=== PATIENT | male | born 1935 | race Caucasian/White ===

== ENCOUNTER 2017-12-13 17:51 | Observation (INO) | payer OTHER ==
[~2017-12-13] VITALS: Ht 172.7 cm; Wt 64.4 kg
[~2017-12-13 17:51] MED LIST: FLOMAX0.4 MG PO; FLONASE 0.05%50 MCG NASAL; HYDROCODONE-APA1 TA1 PO; LEVAQUIN 500 M500 M2 PO; LUMIGAN2.5 M1 OP; MACULAR VITAMI1 EACH PO; REFRESH CLASSI1 EACH OP; RESTORIL15 MG PO
[2017-12-13 17:56] VITALS: BP 161/57
[2017-12-13] MEDS ORDERED: METFORMIN HCL500 MG PO (18:15)
[2017-12-13] MEDS ORDERED: XANAX1 MG PO (18:16)
[2017-12-13 18:25] LABS: ABSOLUTE EOSINOPHILS 0.1 thou/uL (0.0-0.7); ABSOLUTE LYMPHOCYTES 1.5 thou/uL (0.8-5.3); ABSOLUTE MONOCYTES 0.6 thou/uL (0.0-1.2); ABSOLUTE NEUTROPHILS 3.5 thou/uL (1.6-8.1); BASOPHILS 0.2 %; HEMATOCRIT 40.3 % (42.0-52.0); HEMOGLOBIN 13.6 gm/dL (14.0-18.0); LYMPHOCYTES 26.8 %; MCH 34.4 pg (26.0-34.0); MCHC 33.7 g/dL (28.0-37.0); MCV 102.2 fL (80.0-100.0); MONOCYTES 10.1 %; NUCLEATED RBCS 0 /100WBC; PLATELET COUNT* 169 thou/uL (150-400); POLYS 61.9 %; RBC 3.94 mil/uL (4.50-6.00); RDW-CV 13.6 % (10.5-14.5); WBC 5.7 thou/uL (4.0-11.0)
[2017-12-13 18:33] LABS: ANION GAP 5 mmol/L (7-16); BUN 9 mg/dL (7-18); CALCIUM 8.3 mg/dL (8.5-10.1); CHLORIDE 100 mmol/L (98-107); CO2 30 mmol/L (21-32); CREATININE 0.8 mg/dL (0.6-1.3); GLUCOSE 135 mg/dL (70-99); POTASSIUM 3.7 mmol/L (3.5-5.1); SODIUM 135 mmol/L (136-145)
[2017-12-13 18:37] LABS: PROTIME 10.7 Seconds (9.20-11.50)
[2017-12-13 18:44] LABS: ALBUMIN 3.3 g/dL (3.4-5.0); ALKALINE PHOSPHATASE 53 U/L (46-116); NT-PRO BRAIN NAT PEPTIDE 451 pg/mL (<300); SGOT 18 U/L (15-37); SGPT 23 U/L (30-65); TOTAL PROTEIN 6.5 g/dL (6.4-8.2); TROPONIN-I LEVEL <0.06 ng/mL (<0.06)
[2017-12-13 19:40] VITALS: BP 143/62
[2017-12-13 20:00] VITALS: BP 147/65
[2017-12-14] VITALS: BP 112/53
[2017-12-14 04:00] VITALS: BP 111/51
[2017-12-14 05:24] LABS: CHOLESTEROL 154 mg/dL (<200); HDL CHOLESTEROL 73 mg/dL (>40); LDL CHOLESTEROL 78 mg/dL (<100); TC:HDL 2.1 Ratio (Not establshd); TRIGLYCERIDE 19 mg/dL (<150); VLDL 4 mg/dL (<40)
[2017-12-14 05:54] LABS: SERUM ASSESSMENT CLEAR
[2017-12-14 08:00] VITALS: BP 123/57
[2017-12-14] MEDS ORDERED: LO-DOSE ASPIRIN81 M1 PO (09:05)
[2017-12-14] MEDS ORDERED: CEFDINIR300 MG PO (09:05)
[2017-12-14] MEDS ORDERED: MEDROLDOSEPACK PO (09:05)
[2017-12-14] MEDS ORDERED: ANTIVERT25 MG PO (09:05)
--- NOTE | 2017-12-14 11:02 | EKG ---
[place] [address] ELECTROCARDIOGRAM REPORT Name: LILY CORNEJO Room: [address] M.R.#: [id number] Admission: 12/13/17 Attend Phys: Mani Huang MD Discharge: Date of : 31 Report #: [id number] THIS REPORT FOR: //name// [facility] ED Test Date: 2017-12-13 Test Time: 18:02:05 Pat Name: LILY CORNEJO Department: Room: [facility] Gender: M Marketing Content Specialist: Sania BLACKBURN : 1935 Requested By: Moses Clements Order Number: [id number] MD: Camron Gonzalez Measurements Intervals [place] Rate: 65 P: 40 LA: 162 QRS: -2 QRSD: 102 T: 42 QT: 409 QTc: 426 Interpretive Statements Sinus rhythm Compared to ECG 11/20/2015 13:12:30 no change Electronically Signed On 12-14-2017 11:02:25 CDT by Camron Gonzalez [email or web address] <ELECTRONICALLY SIGNED> By: Camron Gonzalez MD, [facility] 12/14/17 1102 01 01 Camron Gonzalez MD, [facility] /EPI
[2017-12-14 11:04] VITALS: BP 123/57
--- NOTE | 2017-12-14 11:04 | EKG ---
[place] [address] ELECTROCARDIOGRAM REPORT Name: LILY CORNEJO Room: [address] M.R.#: [id number] Admission: 12/13/17 Attend Phys: Mani Huang MD Discharge: Date of : 31 Report #: [id number] THIS REPORT FOR: //name// [facility] Test Date: 2017-12-13 Test Time: 23:49:24 Pat Name: LILY CORNEJO Department: Room: [address] Gender: M Hvac Services Professional: DIANNE : 1935 Requested By: Mani Huang Order Number: [id number] Jonathan MD: Camron Gonzalez Measurements Intervals [place] Rate: 66 P: 74 MD: 164 QRS: -42 QRSD: 89 T: 29 QT: 556 QTc: 583 Interpretive Statements Sinus rhythm Left axis deviation Borderline abnrm T, anterolateral leads Prolonged QT interval Electronically Signed On 12-14-2017 11:04:21 CDT by Camron Gonzalez [email or web address] <ELECTRONICALLY SIGNED> By: Camron Gonzalez MD, [facility] 12/14/17 1104 D: [id number] Camron Gonzalez MD, [facility] /EPI
[2017-12-14 11:16] LABS: URINE BILIRUBIN NEGATIVE (Negative); URINE BLOOD NEGATIVE (Negative); URINE CLARITY CLEAR; URINE COLOR YELLOW; URINE GLUCOSE-RANDOM NEGATIVE (Negative); URINE KETONES TRACE (Negative); URINE LEUKOCYTES-REFLEX NEGATIVE (Negative); URINE NITRITE-REFLEX NEGATIVE (Negative); URINE PROTEIN NEGATIVE (Negative); URINE SPECIFIC GRAVITY 1.015 (1.005-1.030); URINE UROBILINOGEN 0.2 E.U./dl (0.2-1.0)
== END 2017-12-14 12:00 | disposition home or self-care (01) ==
LOC: M.ERS 17:51 → M.TBA-ER 18:42 → M.2W 18:42
PROVIDERS: Family Medicine; ADMIT Internal Medicine
DX: H81.23 Vestibular neuronitis, bilateral (principal); H61.23 Impacted cerumen, bilateral; J32.9 Chronic sinusitis, unspecified; R42 Dizziness and giddiness; G25.0 Essential tremor; H35.30 Unspecified macular degeneration; E46 Unspecified protein-calorie malnutrition; G20 Parkinson's disease; I87.8 Other specified disorders of veins; F17.210 Nicotine dependence, cigarettes, uncomplicated; R60.0 Localized edema; Z90.49 Acquired absence of other specified parts of digestive tract; Z98.890 Other specified postprocedural states

== ENCOUNTER 2017-12-22 14:49 | Inpatient (IN) | payer OTHER ==
[~2017-12-22] VITALS: Ht 152.4 cm; Wt 54.9 kg
[~2017-12-22 14:49] MED LIST changes: +ANTIVERT25 MG PO; +CEFDINIR300 MG PO; +LO-DOSE ASPIRIN81 M1 PO; +MEDROLDOSEPACK PO; +METFORMIN HCL500 MG PO; +XANAX1 MG PO
[2017-12-22 14:55] VITALS: BP 138/75
[2017-12-22] MEDS ORDERED: FLONASE 0.05%50 MCG NASAL (15:00)
[2017-12-22 15:14] LABS: HEMATOCRIT 42.8 % (42.0-52.0); HEMOGLOBIN 14.4 gm/dL (14.0-18.0); MCH 34.1 pg (26.0-34.0); MCHC 33.6 g/dL (28.0-37.0); MCV 101.3 fL (80.0-100.0); MPV 9.4 fl. (7.2-11.1); NUCLEATED RBCS 0 /100WBC; PLATELET COUNT* 186 thou/uL (150-400); RBC 4.23 mil/uL (4.50-6.00); RDW-CV 13.7 % (10.5-14.5)
[2017-12-22 15:21] LABS: ANION GAP 4 mmol/L (7-16); BUN 15 mg/dL (7-18); CALCIUM 8.4 mg/dL (8.5-10.1); CHLORIDE 97 mmol/L (98-107); CO2 31 mmol/L (21-32); CREATININE 0.9 mg/dL (0.6-1.3); GLUCOSE 96 mg/dL (70-99); POTASSIUM 3.8 mmol/L (3.5-5.1); SODIUM 132 mmol/L (136-145)
[2017-12-22 15:24] LABS: PROTIME 10.7 Seconds (9.20-11.50)
[2017-12-22 15:32] LABS: ALBUMIN 3.5 g/dL (3.4-5.0); ALKALINE PHOSPHATASE 54 U/L (46-116); LIPASE 94 U/L (73-393); NT-PRO BRAIN NAT PEPTIDE 150 pg/mL (<300); SGOT 17 U/L (15-37); SGPT 24 U/L (30-65); TOTAL BILIRUBIN 2.1 mg/dL (<0.1-1.0); TOTAL PROTEIN 6.4 g/dL (6.4-8.2); TROPONIN-I LEVEL <0.06 ng/mL (<0.06)
[2017-12-22 15:40] LABS: ABSOLUTE LYMPHOCYTES 0.6 thou/uL (0.8-5.3); ABSOLUTE MONOCYTES 2.6 thou/uL (0.0-1.2); ABSOLUTE NEUTROPHILS 25.8 thou/uL (1.6-8.1)
[2017-12-22 15:41] LABS: MACROCYTES Occasional; PLATELET ESTIMATE ADEQUATE
[2017-12-22 19:15] VITALS: BP 100/41
[2017-12-22 19:40] VITALS: BP 126/66
[2017-12-23] VITALS: BP 84/56
[2017-12-23 04:00] VITALS: BP 93/39
--- NOTE | 2017-12-23 05:37 | NUR ---
PT ADMITTED TO ROOM 230FROM ER. PT MOVED SELF TO HOSPITAL BED WITHOUT DIFFICUTLY. RESP REG AND UNALBORED SKIN W/D NO ACUTE DISTRSS NOTED. PT ORIENTED TO ROOM, CALL SUSTEM BED CONTROLS AND TV CONTROLS. PT VERBALIZED GOOD UNDERSTANDING. PT HAS SMALL OPEN AREA ON SACRUM AND STATED HE HAD IT DURING LAST HOSPITAL STATY TOO ABUT IT WAS MUCH BETTER. PICTURES TAKEN,. VSS AND NO ACUTE CHAGNES DURING SHIFT WILL CONTINUE TO MONITOR. TELEMETRY PACK APPLIED WITH ALARMS SET. PT HAD AN INCONTINENT LOOSE STOOL X2 THIS SHIFT.
[2017-12-23 08:41] VITALS: BP 105/50
--- NOTE | 2017-12-23 11:33 | NUR ---
ASSUMED PT CARE AT 0730, FULL ASSESMENT DONE CHARTED. PT A/O X4, C/O SOME BACK PAIN, DENIES NEED FOR ANY PAIN MEDS. PT STATES HE HAS HAD SOME LOOSE STOOLS TODAY AND THIS WEEK AFTER STARTING SOME ABX FOR A SINUS INFECTION. PT UP WITH ASSIST, USES CALL LIGHT APPROPRIALTY. VSS, SR/BBB/PVC'S ON THE MONITOR
--- NOTE | 2017-12-23 12:28 | NUR ---
MET WITH PT TO DISCUSS HOME SITUATION/DC PLANNING. PT WAS HOSPITALIZED AND DC'D LAST WEEK. PT LIVES ALONE, SON/BILL AND HELEN/ERICKA WHO IS DPOA CHECK ON HIM REGULARLY. PT USES CANE, IS INDEPENDENT WITH ADLS AND DRIVES. HASN'T HAD HH OR BEEN TO SNF. HE STATED HE WAS CONSIDERING HH THIS TIME. PT WAS ADMITTED FROM 'S OFFICE YESTERDAY. CALL TO BART, SHE WAS NOT AWARE PT WAS HOSPITALIZED, WILL BE HERE LATER TODAY. SHE STATED THEY SAW PT ON THURSDAY AND HE WAS DOING WELL. WILL FOLLOW
[2017-12-23 14:42] LABS: HEMATOCRIT 37.5 % (42.0-52.0); MCH 33.8 pg (26.0-34.0); MCHC 32.9 g/dL (28.0-37.0); MCV 102.8 fL (80.0-100.0); MPV 9.9 fl. (7.2-11.1); RBC 3.65 mil/uL (4.50-6.00); RDW-CV 13.9 % (10.5-14.5); WBC 31.9 thou/uL (4.0-11.0)
[2017-12-23 14:44] LABS: HEMOGLOBIN 12.3 gm/dL (14.0-18.0)
[2017-12-23 14:55] LABS: CALCIUM 7.7 mg/dL (8.5-10.1); POTASSIUM 3.2 mmol/L (3.5-5.1)
[2017-12-23 15:16] VITALS: BP 101/33
--- NOTE | 2017-12-23 15:47 | NUR ---
WOUND CARE NOTE: ASSESSMENT FOR PRESSURE ULCER TO COCCYX. PATIENT PRESENTS WITH A HEALING ULCERATION TO HIS COCCYX. 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 ERIK-WOUND IS CALLUSED. PATIENT ADMITS TO HAVING THIS FOR A COUPLE OF WEEKS NOW AND IT WAS THE SIZE OF HIS THUMB. WOUND MEASURES 0.5X0.2X0.1. RED, MOIST WOUND BED. RECOMMEND TURN Q2 HOURS-KEEP OFF WOUND BARRIER OINTMENT BID AND PRN WAFFLE CUSHION WHEN IN CHAIR NO BRIEFS LIMIT LAYERS OF LINEN UNDER PATIENT
--- NOTE | 2017-12-23 17:17 | EKG ---
[place] [address] ELECTROCARDIOGRAM REPORT Name: LILY CORNEJO Room: [address] ADM IN M.R.#: [id number] Admission: 12/22/17 Attend Phys: Vincent Monique Discharge: Date of : 31 Report #: [id number] THIS REPORT FOR: //name// [facility] ED Test Date: 2017-12-22 Test Time: 14:57:03 Pat Name: LILY CORNEJO Department: Room: [facility] Gender: M Fisher Spear: JAVI : 1935 Requested By: Alberto Alamo Order Number: [id number] MD: Adalberto Barrera Measurements Intervals [place] Rate: 94 P: 61 MO: 145 QRS: -58 QRSD: 97 T: 39 QT: 351 QTc: 439 Interpretive Statements Sinus rhythm LAD, consider left anterior fascicular block Borderline T wave abnormalities Baseline wander in lead(s) V1 Compared to ECG 12/13/2017 23:49:24 T-wave abnormality now present Prolonged QT interval no longer present Electronically Signed On 12-23-2017 17:16:56 CDT by Adalberto Barrera [email or web address] <ELECTRONICALLY SIGNED> By: Adalberto Barrera MD, [facility] 12/23/17 1716 1457 1457 Adalberto Barrera MD, [facility] /EPI
[2017-12-23 20:00] VITALS: BP 91/40
[2017-12-24] VITALS: BP 105/54
[2017-12-24 04:00] VITALS: BP 107/44
[2017-12-24 05:12] LABS: ALBUMIN 2.3 g/dL (3.4-5.0); CALCIUM 7.3 mg/dL (8.5-10.1); CREATININE 0.9 mg/dL (0.6-1.3); POTASSIUM 3.5 mmol/L (3.5-5.1); TOTAL PROTEIN 4.7 g/dL (6.4-8.2)
--- NOTE | 2017-12-24 05:26 | NUR ---
VITALS WNL. SEE MAR. SEE CHARTING. FALL PRECAUTIONS IN PLACE. HOURLY ROUNDING FOR SAFETY.
[2017-12-24 07:30] VITALS: BP 91/39
[2017-12-24 12:00] VITALS: BP 126/70
--- NOTE | 2017-12-24 12:26 | CON ---
[address] [address] CONSULTATION Name: LILY CORNEJO Room: [address] IN .R.#: [id number] Admission: 12/22/17 Attend Phys: Vincent Monique Discharge: Date of : 31 Report #: [id number] THIS REPORT FOR: //name// CC: Camron Jaffe DATE OF SERVICE: 12/23/2017 INFECTIOUS DISEASE CONSULTATION ATTENDING PHYSICIAN: Rai Jaffe DO REASON FOR EVALUATION: Sepsis, diarrheal illness, marked leukocytosis. HISTORY OF PRESENT ILLNESS: Chart reviewed, patient examined. This 82-year-old gentleman with history of prostate cancer was actually hospitalized earlier this month, was felt to have severe sinusitis, was treated with antibiotics. Over the course of the last day or 2 prior to admission, he had developed abdominal related discomfort including pain and shortly thereafter diarrhea. It is unclear if he has had significant fevers. He had progressive weakness. Evaluation noted marked elevation in the white count to 29,000. Lactic acid was 1.1. Chest x-ray was otherwise unremarkable. Was empirically started on Zosyn. ALLERGIES: None known. MEDICATIONS: Multivitamin, fluticasone, alprazolam, metformin, furosemide, aspirin, tamsulosin, methylprednisolone, Zosyn, temazepam. PAST MEDICAL HISTORY: As noted above, prostate cancer, essential tremor, history of macular degeneration, previous cholecystectomy. SOCIAL HISTORY: Smokes half pack per day for 70 years. No illicit drug use. No ethanol. FAMILY HISTORY: Noncontributory. REVIEW OF SYSTEMS: As above. Denies any significant pulmonary-related complaints. Appetite has been diminished. PHYSICAL EXAMINATION: GENERAL: Appears acute on chronically ill. He is not overtly toxic, in mild distress. Does have the evident tremulousness. He is undernourished. VITAL SIGNS: Temperature in 98.5, pulse 64, respirations 14, blood pressure 101/33. SKIN: Warm, dry. HEENT: Otherwise [place] [address] CONSULTATION Name: LILY CORNEJO Room: [address] IN [facility].#: [id number] Admission: 12/22/17 Attend Phys: Vincent Monique Discharge: Date of : 31 Report #: [id number] NECK: Supple. LUNGS: Diminished breath sounds, scattered crackles. HEART: Regular. Borderline bradycardic. I do not appreciate a murmur. ABDOMEN: Soft, some mild tenderness. There are no overt peritoneal signs. Mildly distended. GENITOURINARY: Deferred. RECTAL: Deferred. LABORATORY DATA: Lactic acid 1.1. PT of 10.7, INR of 1.0. Electrolytes: Sodium 132, potassium 3.8, chloride 97, bicarbonate is 31, anion gap of 4, BUN and creatinine 15 and 0.9, total bilirubin elevated at 2.1. LFTs otherwise unremarkable. Albumin of 3.5. Total protein 6.4. Estimated GFR 80. CBC: White count of 29,000, H and H 14.4 and 42.8, MCV is mildly elevated at 101.3. Differential shows an absolute lymphocytopenia and monocytosis. Chest x-ray, no acute process. V/Q scan suggests low probability of pulmonary embolus. Repeat white count was 31.9. ASSESSMENT: Diarrheal illness in a patient with recent hospitalization, has received antimicrobial therapy. Certainly, there would be concern about complication of infectious colitis, specifically Clostridium difficile. We will start empiric treatment. Await studies of the stool. At this point, he is hemodynamically unstable, appears quite tenuous. Monitor expectantly at this point and see other evidence of focal pyogenic infection. <ELECTRONICALLY SIGNED> By: Shamar Weiss MD 12/24/17 1226 1538 [id number] Weiss MD /nt
--- NOTE | 2017-12-24 15:51 | NUR ---
VSS, ASSUMED CARE OF PT IN THE AM, ASSESSMENT PERFORMED AND CHARTED, FALL PRECAUTIONS IN PLACE AND CALL LIGHT IN RECAH, PT DENIES ANY PAIN, HE IS ON 2L NC ANS SATS ARE 99%, PT MOVED TO 1L NC, PT IS TRACING SB ON THE MONIOTOR, IS UP WITH ONE, HE IS A&O4 AND HIS GOAL IS TO SIT UP IN CHAIR, WILL FOLLOW WITH PLAN OF CARE.
[2017-12-24 15:54] LABS: URINE BILIRUBIN NEGATIVE (Negative); URINE BLOOD 1+ (Negative); URINE CLARITY CLEAR; URINE COLOR YELLOW; URINE GLUCOSE-RANDOM NEGATIVE (Negative); URINE KETONES NEGATIVE (Negative); URINE LEUKOCYTES-REFLEX NEGATIVE (Negative); URINE NITRITE-REFLEX NEGATIVE (Negative); URINE PROTEIN NEGATIVE (Negative); URINE SPECIFIC GRAVITY 1.015 (1.005-1.030); URINE UROBILINOGEN 0.2 E.U./dl (0.2-1.0)
[2017-12-24 16:00] VITALS: BP 108/42
[2017-12-24 16:05] LABS: CRYSTALS None Seen /LPF (None Seen); HYALINE CASTS 4-10 Moderate /LPF (None Seen); MUCUS None Seen strn/LPF (None Seen); SQUAMOUS 0-3 Few /LPF (0-3)
[2017-12-24 16:06] LABS: BACTERIA-REFLEX None Seen /HPF (None Seen); URINE RBC 0-2 Rare /HPF (0-2); URINE WBC-REFLEX None Seen /HPF (0-5)
[2017-12-24 19:40] VITALS: BP 112/66
[2017-12-25] VITALS: BP 103/52
[2017-12-25 04:00] VITALS: BP 125/68
--- NOTE | 2017-12-25 05:48 | NUR ---
PT AAOX4 RESP REG AND UNLABORED SKIN W/D AND NO ACUTE DISTRESS NOTED. PT STATED HE WAS FEELING SOME BETTER. TELEMETRY PACK INTACT WITH ALARMS SET. NO LOOSE STOOLS THIS SHIFT. PT REMAINS IN ISOLATION OREDERED, VSS AND NO AND NO ACUTE CHANGES DURIGN SHIFT WILL CONTINUE TO MONITT.
[2017-12-25 09:30] VITALS: BP 124/64
[2017-12-25 11:51] VITALS: BP 108/59
--- NOTE | 2017-12-25 14:08 | NUR ---
ASSUMED PT CARE AT 0730, FULL ASSESMENT DONE CHARTED. PT A/O X4, PLEASANT, DENIES PAIN, LOOSE STOOL THIS AM, CDIFF POSITIVE. ISOLATION MAINTAINED. VSS, SB ON THE MONITOR. PT CALLS OUT APPROPRIALTY FOR NEEDS. WILL CONTINUE WITH PLAN OF CARE.
[2017-12-25 15:37] VITALS: BP 101/51
--- NOTE | 2017-12-25 16:02 | 2DMMODE ---
[place] [address] 2 D/M-MODE ECHOCARDIOGRAM Name: LILY CORNEJO Room: [address] ADM IN [facility]#: [id number] Admission: 12/22/17 Attend Phys: Rai Jaffe Discharge: Date of : 31 Date of Service: 12/25/17 1602 Report #: [id number] THIS REPORT FOR: //name// APPROVED REPORT Study performed: 12/25/2017 14:41:57 EXAM: Comprehensive 2D, Doppler, and color-flow Echocardiogram Patient Location: In-Patient Room #: 230 Status: routine BSA: 1.68 HR: 55 bpm BP: 108/59 mmHg Rhythm: NSR Other Information Study Quality: Good Indications Congestive Heart Failure 2D Dimensions IVSd: 8.37 (7-11mm) LVOT Diam: 19.82 (18-24mm) LVDd: 45.94 mm PWd: 8.74 (7-11mm) LVDs: 35.22 (25-40mm) Aortic Root: 38.48 mm Volumes Left Atrial Volume (Systole) LA ESV Index: 31.30 mL/m2 Aortic Valve AoV Peak Rodney.: 0.89 m/s AO Peak Gr.: 3.20 mmHg LVOT Max P.57 mmHg AO Mean Gr.: 1.91 mmHg LVOT Mean P.31 mmHg LVOT Max V: 0.80 m/s AO V2 VTI: 23.94 cm LVOT Mean V: 0.53 m/s AILYN (VTI): 2.53 cm2 LVOT V1 VTI: 19.64 cm Mitral Valve E/A Ratio: 1.31 MV Decel. Time: 191.55 ms MV E Max Rodney.: 0.76 m/[place] [address] 2 D/M-MODE ECHOCARDIOGRAM Name: LILY CORNEJO Room: [address] IN ..#: [id number] Admission: 12/22/17 Attend Phys: Rai Jaffe Discharge: Date of : 31 Date of Service: 12/25/17 1602 Report #: [id number] MV PHT: 55.55 ms MVA (PHT): 3.96 cm2 TDI E/Lateral E': 19.00 E/Medial E': 7.60 Medial E' Rodney.: 0.10 m/s Lateral E' Rodney.: 0.04 m/s Pulmonary Valve PV Peak Rodney.: 0.62 m/s PV Peak Gr.: 1.55 mmHg Tricuspid Valve RAP Estimate: 5.00 mmHg TR Peak Gr.: 27.67 mmHg RVSP: 32.67 mmHg PA Pressure: 32.67 mmHg Left Ventricle The left ventricle is normal size. There is normal LV segmental wall motion. There is normal left ventricular wall thickness. Left ventricular systolic function is normal. The left ventricular ejection fraction is within the normal range. LVEF is 45-50%. The left ventricular diastolic function is normal. Right Ventricle The right ventricle is normal size. The right ventricular systolic function is normal. Atria The left atrium size is normal. The right atrium size is normal. Aortic Valve Mild aortic valve sclerosis. No aortic regurgitation is present. There is no aortic valvular stenosis. Mitral Valve The mitral valve is normal in structure. Mild mitral regurgitation. No evidence of mitral valve stenosis. Tricuspid Valve The tricuspid valve is normal in structure. Trace tricuspid regurgitation. Mild pulmonary hypertension. Pulmonic Valve The pulmonary valve is normal in structure. There is no pulmonic valvular reg[place] [address] 2 D/M-MODE ECHOCARDIOGRAM Name: LILY CORNEJO Room: [address] IN [facility]#: [id number] Admission: 12/22/17 Attend Phys: Rai Jaffe Discharge: Date of : 31 Date of Service: 12/25/17 1602 Report #: [id number] Great Vessels The aortic root is normal in size. IVC is normal in size and collapses >50% with inspiration. Pericardium There is no pericardial effusion. <Conclusion> LVEF is 45-50%. There is normal LV segmental wall motion. Mild aortic valve sclerosis. No aortic regurgitation is present. There is no aortic valvular stenosis. Mild mitral regurgitation. No evidence of mitral valve stenosis. <ELECTRONICALLY SIGNED> By: Nolberto Morton MD, FACC 12/25/17 160 160 01 Nolberto Morton MD, FACC /INF
--- NOTE | 2017-12-25 18:19 | NUR ---
CDIFF POSITIVE RESULT, DISCUSSED WITH FAMILY. GI IN TO SEE PT THIS EVENING, NO PROCEDURES PLANNED AT THIS TIME. PTS APITITE GOOD, HE IS STILL WEAK, UP WITH 1 ASSIST. VSS, SB ON THE MONITOR. WILL CONTINUE TO MONITOR.
[2017-12-25 20:00] VITALS: BP 112/59
[2017-12-26] VITALS: BP 123/66
[2017-12-26 04:00] VITALS: BP 134/65
--- NOTE | 2017-12-26 05:18 | NUR ---
ASSUMED CARE OF PATIENT AT 1900 THE PATIENT REMAINS SB ON THE TELEMONITOR O2 SAT IS MAINTAINED ON 1LNC ISOLATION PRECAUTIONS CONTINUE FOR CDIFF THE PATIENT CONTINUES TO GET UP WITH ASSIST X 1 TO THE BSC ROUTINE INTERVENTIONS CONTINUE TO BE EFFECTIVE FOR SX MANAGEMENT PATIENT CONTINUES TO PROGRESS TOWARDS GOALS SAFETY INTERVENTIONS CONTINUE BED LOWERED WHEELS LOCKED SIDE RAILS UP X 2 CALL LIGHT IN REACH REPORT TO BE GIVEN TO AUGIE CARDONA
[2017-12-26 05:28] LABS: CALCIUM 7.7 mg/dL (8.5-10.1); CREATININE 0.9 mg/dL (0.6-1.3); MAGNESIUM 1.8 mg/dL (1.8-2.4); POTASSIUM 3.8 mmol/L (3.5-5.1)
[2017-12-26 05:38] LABS: HEMATOCRIT 38.3 % (42.0-52.0); HEMOGLOBIN 12.8 gm/dL (14.0-18.0); MCH 34.3 pg (26.0-34.0); MCHC 33.5 g/dL (28.0-37.0); MCV 102.2 fL (80.0-100.0); MPV 10.7 fl. (7.2-11.1); RBC 3.75 mil/uL (4.50-6.00); WBC 13.7 thou/uL (4.0-11.0)
[2017-12-26 08:00] VITALS: BP 127/64
--- NOTE | 2017-12-26 08:00 | NUR ---
RECEIVED WRITTEN REPORT AND ASSUMED CARE OF PT @ 0800.PT IS A/O,VSS,TRACING SB-SR ON THE MONITOR.LUNG SOUNDS ARE COARSE WITH WHEEZES.PT REMAINS ON 1L O2 NC. LAST BM WAS TODAY.ISOLATION MAINTAINED FOR CDIFF.IV PATENT AND SALINE LOCKED.PT IS CALM AND COOPERATIVE WITH NO C/O PAIN AT TIME OF ASSESSMENT.PT IS UP WITH ONE ASSIST TO BSC.PT LEFT RESTING IN BED WITH CALL LIGHT AND FALL PRECAUTIONS IN PLACE.WILL CONTINUE TO MONITOR.
[2017-12-26 16:00] VITALS: BP 112/61
--- NOTE | 2017-12-26 18:04 | NUR ---
VSS,CARDIAC MONITORING IN PLACE WITH NO CHANGES.PT REMAINS ON 1L O2 NC.PT PROGRESSING TOWARDS GOALS.NO C/O PAIN.IV ANTIBIOTICS COMPLETED.ISOLATION MAINTAINED.PT INFORMED OF PLAN OF CARE AND COMMUNICATES UNDERSTANDING.PT HAS BEEN UP IN THE CHAIR FOR MOST OF THE SHIFT.WORKED WITH PT AND OT AND AMBULATED IN THE ROOM.HOURLY ROUNDING COMPLETED FOR PT SAFETY.CALL LIGHT AND FALL PRECAUTIONS IN PLACE.WILL CONTINUE TO MONITOR FOR DURATION OF SHIFT.
[2017-12-26 20:00] VITALS: BP 105/59
[2017-12-27] VITALS: BP 115/72
[2017-12-27 04:00] VITALS: BP 115/57
--- NOTE | 2017-12-27 04:53 | NUR ---
ASSUMED CARE OF PATIENT AT 1900 THE PATIENT REMAINS SB ON THE TELEMONITOR O2 SAT IS MAINTAINED ON 1LNC ISOLATION PRECAUTIONS CONTINUE FOR CDIFF THE PATIENT CONTINUES TO GET UP WITH ASSIST X 1 TO THE BSC ROUTINE INTERVENTIONS CONTINUE TO BE EFFECTIVE FOR SX MANAGEMENT PATIENT CONTINUES TO PROGRESS TOWARDS GOALS HE REPORTS A DECREASE IN AMOUNT OF BM'S, NIGHT UNEVENTFUL SAFETY INTERVENTIONS CONTINUE BED LOWERED WHEELS LOCKED SIDE RAILS UP X 2 CALL LIGHT IN REACH REPORT TO BE GIVEN TO ONCOMING RN
[2017-12-27 08:10] VITALS: BP 131/79
--- NOTE | 2017-12-27 10:25 | NUR ---
RECEIVED REPORT FROM VINOD AND ASSUMED CARE OF PT @ 9733.PT IS A/O,VSS,TRACING SR ON THE MONITOR.LUNG SOUNDS ARE COARSE WITH WHEEZES.LAST BM WAS YESTERDAY.IV PATENT AND SALINE LOCKED.PT IS CALM AND COOPERATIVE WITH NO C/O PAIN AT TIME OF ASSESSMENT.PT IS UP WITH ONE ASSIST.UP IN THE CHAIR FOR BREAKFAST.PT LEFT RESTING IN CHAIR WITH CALL LIGHT AND FALL PRECAUTIONS IN PLACE.WILL CONTINUE TO MONITOR.
[2017-12-27 12:06] VITALS: BP 106/59
[2017-12-27 16:01] VITALS: BP 107/64
--- NOTE | 2017-12-27 18:52 | NUR ---
VSS,CARDIAC MONITORING IN PLACE WITH NO CHANGES THIS SHIFT.PT REMAINS ON 1L O2 NC.PT PROGRESSING TOWARDS GOALS.NO C/O PAIN.IV PATENT AND SALINE LOCKED.PT TO BE NPO AT MIDNIGHT FOR EGD IN AM.CONSENT ON CHART BUT NOT SIGNED.PT INFORMED OF PLAN OF CARE AND COMMUNICATES UNDERSTANDING.ISOLATION MAINTAINED.PT UP IN CHAIR MOST OF SHIFT WITH WAFFLE CUSHION.PICTURES TAKEN OF WOUNDS.DRESSING APPLIED. HOURLY ROUNDING COMPLETED FOR PT SAFETY.CALL LIGHT AND FALL PRECAUTIONS IN PLACE.WILL CONTINUE TO MONITOR FOR DURATION OF SHIFT.
[2017-12-27 20:00] VITALS: BP 105/70
[2017-12-28] VITALS: BP 116/65
[2017-12-28 04:00] VITALS: BP 125/62
[2017-12-28 05:20] LABS: HEMATOCRIT 40.6 % (42.0-52.0); HEMOGLOBIN 13.6 gm/dL (14.0-18.0); MCH 34.3 pg (26.0-34.0); MCHC 33.5 g/dL (28.0-37.0); MCV 102.1 fL (80.0-100.0); MPV 9.9 fl. (7.2-11.1); RBC 3.97 mil/uL (4.50-6.00); RDW-CV 13.6 % (10.5-14.5); WBC 11.5 thou/uL (4.0-11.0)
[2017-12-28 06:03] LABS: ALBUMIN 2.5 g/dL (3.4-5.0); MAGNESIUM 1.7 mg/dL (1.8-2.4); POTASSIUM 4.3 mmol/L (3.5-5.1); TOTAL BILIRUBIN 0.7 mg/dL (<0.1-1.0)
--- NOTE | 2017-12-28 06:07 | NUR ---
PATIENT RESTED IN BED, NO ACUTE CHANGES. PATIENT DID NOT SHOW SIGNS OF DISTRESS. FALL PRECAUTIONS IN PLACE, CALL LIGHT WITH IN REACH, HOURLY ROUNDING OBSERVED. PATIENT HAS BEEN NPO PASSED MIDNIGHT.
--- NOTE | 2017-12-28 07:20 | NUR ---
CHANGE OF SHIFT BEDSIDE REPORT GIVEN PATIENT SEEN AT BEDSIDE, IN BED ASLEEP ASSUMED PATIENT CARE
[2017-12-28 08:00] VITALS: BP 121/65
[2017-12-28 12:24] VITALS: BP 134/68
[2017-12-28 20:00] VITALS: BP 111/69
[2017-12-29] VITALS (7 sets, daily range): BP systolic 90–113; BP diastolic 54–66
--- NOTE | 2017-12-29 01:46 | NUR ---
PATIENT RESTED IN BED, NO ACUTE CHANGES. PATIENT DID NOT SHOW SIGNS OF DISTRESS. FALL PRECAUTIONS IN PLACE, CALL LIGHT WITH IN REACH, HOURLY ROUNDING OBSERVED. WOUND CLEANED WITH WOUND CLEANSER, SKIN PROTECTIVE OINTMENT PLACE THEN DRESSING TO COVER.
--- NOTE | 2017-12-29 07:20 | NUR ---
CHANGE OF SHIFT BEDSIDE REPORT GIVEN PATIENT SEEN AT BEDSIDE, IN BED RESTING ASSUMED PATIENT CARE
--- NOTE | 2017-12-29 12:05 | NUR ---
CONTINUE TO FOLLOW, MET WITH PT AND SPOKE WITH BART OVER THE PHONE. DISCUSSED SNF WITH PT, HE WAS RELUCTANT TO CONSIDER BUT MORE WILLING TO CONSIDER AFTER SPEAKING WITH DR SANDOVAL. DISCUSSED OPTIONS AND WOULD LIKE [facility]. FAXED REFERRAL TO [facility] FROM [facility] TO VISIT WITH PT LATER TODAY.
--- NOTE | 2017-12-30 03:28 | NUR ---
PATIENT RESTED IN BED, NO ACUTE CHANGES. PATIENT DID NOT SHOW SIGNS OF DISTRESS. FALL PRECAUTIONS IN PLACE, CALL LIGHT WITH IN REACH, HOURLY ROUNDING OBSERVED
[2017-12-30 04:00] VITALS: BP 102/59
[2017-12-30 05:00] LABS: HEMATOCRIT 41.5 % (42.0-52.0); MCH 34.5 pg (26.0-34.0); MCHC 33.6 g/dL (28.0-37.0); MCV 102.5 fL (80.0-100.0); MPV 9.2 fl. (7.2-11.1); RBC 4.05 mil/uL (4.50-6.00); RDW-CV 13.6 % (10.5-14.5)
[2017-12-30 05:41] LABS: ALBUMIN 2.5 g/dL (3.4-5.0); CALCIUM 8.1 mg/dL (8.5-10.1); POTASSIUM 4.1 mmol/L (3.5-5.1); TOTAL BILIRUBIN 0.7 mg/dL (<0.1-1.0); TOTAL PROTEIN 4.8 g/dL (6.4-8.2)
[2017-12-30 07:48] VITALS: BP 105/59
--- NOTE | 2017-12-30 09:38 | NUR ---
ASSUMED CARE OF PT THIS AM AROUND 0715- CLERICAL CLERK IN PLACE ORDERED, TRACING SR- UPON ASSESSMENT PT NOTED TO BE RESTING IN BED SIDE CHAIR WATCHING TV- PT A&O X4- CONTINENT VS INCONTINENT OF BOWEL AND BLADDER; USING BED SIDE COMMODE- ASSIST X1 WITH TRANSFERS- DIMINISHED LUNG SOUNDS IN UPPER LOBES/COURSE IN BASES- NOTED TO HAVE NON-PRODUCTIVE COUGH- VSS, O2 SAT 95% ON RA- ABDOMEN SOFT/FLAT/NON-TENDER, BS X4 QUADS- PT NOTED TO HAVE HAD LOSE BM THIS AM, X2 REPORTS OVER NIGHT- IV NOTED TO RIGHT FA INTACT AND SL- POSITION CHANGES ENCOURAGED Q 2HOURS- GOOD PO INTAKE NOTED THIS AM WITH BREAKFAST- PT DENIES ANY C/O PAIN/DISCOMFORT THIS AM- CALL LIGHT AND PERSONAL BELONGINGS WITH IN REACH- HOURLY ROUNDS IN PLACE R/T SAFETY/NEEDS- ALL NEEDS MET AT THIS TIME-WCTM
--- NOTE | 2017-12-30 09:47 | NUR ---
HEARD BACK FROM [facility]. [facility] HAVE ACCEPTED PT CLINICALLY AND SUBMITTED FOR INSURANCE AUTH FOR SNF.
[2017-12-30 12:00] VITALS: BP 106/65
--- NOTE | 2017-12-30 12:11 | NUR ---
ORDERS NOTED FOR DC TO SNF. AWAIT [facility] TO GET AUTH FROM PT'S INSURANCE. FAXED DC ORDERS TO [facility]. CHART COPIED
[2017-12-30] MEDS ORDERED: THERAGRAN-M PR1 EAC1 PO (12:16)
[2017-12-30] MEDS ORDERED: VANCOCIN 250 M250 M1 PO (12:21)
[2017-12-30 12:22] VITALS: BP 105/59
--- NOTE | 2017-12-30 15:19 | NUR ---
ORDERS RECIEVED FOR OKAY TO D/C TO SKILLED UNIT THIS SHIFT PER - PRANEETH HERE TO ARRANGE TRANSPORT TO [facility] VIA W/C VAN WITH SENIOR JAVA SOFTWARE ENGINEER PLANNED FOR 1600- IV TO RIGHT FA D/C'D ALONG WITH VENDING ROUTE SERVICER PRIOR TO D/C- D/C TEACHING/EDUCATION GIVEN TO PT PRIOR TO D/C WITH ALL QUESTIONS AND CONCERNS ADDRESSED PRIOR TO D/C- WRITTEN EDUCATION PROVIDED TO PT AT TIME OF D/C- REPORT CALLED TO DALILA RN AT [facility] WITH ALL QUESTIONS AND CONCERNS ADDRESSED- BELONGINGS PACKED AND ACCOUNTED FOR PER TECH- GOOD PO INTAKE NOTED THIS SHIFT WITH MEALS- WOUND TO COCCYX CLEANED WITH WW, PAT DRY WITH SKIN PREP APPLIED AND THEN FOAM DRESSING- PIC OBTAINED OF AREA AND PLACED ON CHART FOR VIEWING-PT CHASITYLTY SITTING UP IN BED SIDE RECLINER AWAITTING SENIOR JAVA SOFTWARE ENGINEER FOR TRANSFER- ALL NEEDS MET AT THIS TIME-WCTM
--- NOTE | 2017-12-31 13:22 | CON ---
[address] [address] CONSULTATION Name: LILY CORNEJO Room: [address] IN ..#: [id number] Admission: 12/22/17 Attend Phys: Vincent Monique Discharge: 12/30/17 Date of : 31 Report #: [id number] THIS REPORT FOR: //name// CC: Camron Jaffe DATE OF SERVICE: 12/25/2017 HISTORY OF PRESENT ILLNESS: This is a very pleasant 82-year-old gentleman with past medical history significant for prostate cancer, who presents to the hospital with diarrhea. The patient reports that about a week back, he had presented initially with dizziness and at that time, was diagnosed with sinusitis and discharged on antibiotics. Two days following the discharge, the patient began experiencing episodes of diarrhea, with sometimes more than 5 per day. These episodes were also associated with incontinence and soiling, especially during the night. The patient denies seeing any blood in stool and denies any significant abdominal pain, nausea, vomiting, fevers or chills at this time. Over the course of the admission, the patient has been diagnosed with C. diff infection. The patient reports that this is his first C. diff infection and denies prior episodes of the same. PAST MEDICAL HISTORY: As mentioned above. The patient has a past medical history of prostate cancer. He has macular degeneration. PAST SURGICAL HISTORY: The patient has history of cholecystectomy. SOCIAL HISTORY: The patient reports smoking 10 cigarettes a day. Denies alcohol or recreational drug use. FAMILY HISTORY: Reviewed and noncontributory. REVIEW OF SYSTEMS: Comprehensive 10-point review of systems is negative, except for what is mentioned in the HPI. PHYSICAL EXAMINATION: VITAL SIGNS: Temperature 36.4, pulse rate 57, respirations 20 and blood pressure 101/51. GENERAL: The patient is alert, awake and oriented x 3. HEENT: Mucous membranes are moist. There is no congestion. NECK: Supple. There is no supraclavicular lymphadenopathy. LUNGS: Clear to auscultation bilaterally. CARDIOVASCULAR EXAMINATION: Rate and rhythm regular, S1, S2 present. ABDOMEN: Soft. There is no distention. No tenderness, no guarding, no organomegaly. EXTREMITIES: Warm and well perfused. There is no edema. NEUROLOGIC: There is no [place] [address] CONSULTATION Name: LILY CORNEJO Room: [address]#: [id number] Admission: 12/22/17 Attend Phys: Vincent Monique Discharge: 12/30/17 Date of : 31 Report #: [id number] SKIN: Warm and dry. LABORATORY DATA: WBC count 31.9, hemoglobin 12.3, hematocrit 37.5 and MCV 102.8. Sodium 137, potassium 3.5, chloride 101, bicarbonate 25, BUN 17 and creatinine 0.9. Bilirubin 0.3, AST 14, ALT 18 and alkaline phosphatase 44. Stool C. diff testing positive. CT abdomen and pelvis demonstrates hard stool in the colon, otherwise unremarkable. ASSESSMENT AND PLAN: This is a pleasant 82-year-old gentleman who was given antibiotics for sinus infection and subsequently developed diarrhea and Clostridium difficile colitis. The patient appears to have moderately severe C. diff infection. There is no evidence of toxic megacolon at this time. I would recommend continuing p.o. vancomycin at this time. I suspect his elevated WBC count may be from another source. I have added p.r.n. Imodium at bedtime to help with soiling. <ELECTRONICALLY SIGNED> By: Obie Camacho MD 12/31/17 1322 1741 [id number] Camacho MD /nt
== END 2017-12-30 16:03 | DRG 872 ==
LOC: M.ERS 14:49 → M.TBA-ER 17:21 → M.2W 17:21
PROVIDERS: Emergency Medicine; Family Medicine; Internal Medicine; ADMIT Internal Medicine
DX: A41.9 Sepsis, unspecified organism (principal); A04.72 Enterocolitis due to Clostridium difficile, not specified as recurrent; I50.22 Chronic systolic (congestive) heart failure; J96.10 Chronic respiratory failure, unspecified whether with hypoxia or hypercapnia; E44.0 Moderate protein-calorie malnutrition; Z96.0 Presence of urogenital implants; H35.30 Unspecified macular degeneration; F17.210 Nicotine dependence, cigarettes, uncomplicated; D63.8 Anemia in other chronic diseases classified elsewhere; Z85.46 Personal history of malignant neoplasm of prostate; Z90.49 Acquired absence of other specified parts of digestive tract; Z79.899 Other long term (current) drug therapy; Z79.82 Long term (current) use of aspirin; Z79.84 Long term (current) use of oral hypoglycemic drugs; Z68.23 Body mass index [BMI] 23.0-23.9, adult

== ENCOUNTER 2018-01-27 18:18 | Inpatient (IN) | payer OTHER ==
[~2018-01-27] VITALS: Ht 172.7 cm; Wt 61.7 kg
[~2018-01-27 18:18] MED LIST changes: +THERAGRAN-M PR1 EAC1 PO; +VANCOCIN 250 M250 M1 PO
[2018-01-27 18:20] VITALS: BP 156/66
[2018-01-27 18:43] LABS: HEMATOCRIT 37.1 % (42.0-52.0); HEMOGLOBIN 12.4 gm/dL (14.0-18.0); MCH 34.3 pg (26.0-34.0); MCHC 33.6 g/dL (28.0-37.0); MCV 102.1 fL (80.0-100.0); MPV 8.6 fl. (7.2-11.1); NUCLEATED RBCS 0 /100WBC; PLATELET COUNT* 219 thou/uL (150-400); RBC 3.63 mil/uL (4.50-6.00); RDW-CV 14.6 % (10.5-14.5); WBC 14.8 thou/uL (4.0-11.0)
[2018-01-27 18:49] LABS: ANION GAP 1 mmol/L (7-16); BUN 14 mg/dL (7-18); CALCIUM 8.5 mg/dL (8.5-10.1); CHLORIDE 96 mmol/L (98-107); CO2 33 mmol/L (21-32); CREATININE 0.7 mg/dL (0.6-1.3); GLUCOSE 124 mg/dL (70-99); POTASSIUM 3.8 mmol/L (3.5-5.1); SODIUM 130 mmol/L (136-145)
[2018-01-27 18:50] LABS: APTT 25.7 Seconds (25.0-31.3); INR 1.1
[2018-01-27 18:56] LABS: ALBUMIN 3.1 g/dL (3.4-5.0); ALKALINE PHOSPHATASE 53 U/L (46-116); SGOT 24 U/L (15-37); SGPT 33 U/L (30-65); TOTAL BILIRUBIN 0.7 mg/dL (<0.1-1.0); TROPONIN-I LEVEL <0.06 ng/mL (<0.06)
[2018-01-27 19:12] LABS: ABSOLUTE EOSINOPHILS 0.1 thou/uL (0.0-0.7); ABSOLUTE LYMPHOCYTES 0.9 thou/uL (0.8-5.3); ABSOLUTE NEUTROPHILS 12.7 thou/uL (1.6-8.1); ATYPICAL LYMPHS 1 %
[2018-01-27 19:13] LABS: PLATELET ESTIMATE ADEQUATE
[2018-01-27 20:08] VITALS: BP 156/66
[2018-01-27 20:30] VITALS: BP 158/70
[2018-01-28 02:37] LABS: URINE BILIRUBIN NEGATIVE (Negative); URINE BLOOD NEGATIVE (Negative); URINE CLARITY CLEAR; URINE COLOR YELLOW; URINE GLUCOSE-RANDOM NEGATIVE (Negative); URINE KETONES TRACE (Negative); URINE LEUKOCYTES-REFLEX NEGATIVE (Negative); URINE NITRITE-REFLEX NEGATIVE (Negative); URINE PROTEIN NEGATIVE (Negative); URINE UROBILINOGEN 0.2 E.U./dl (0.2-1.0)
--- NOTE | 2018-01-28 05:29 | NUR ---
PT ADMITED TO UNIT. PT ORIENTED TO ROOM AND CALL LIGHT, FALL AGREEMENT WENT OVER, PT STATED UNDERSTANDING. ASSESSMENT DOCUMENTED, MEDS GIVEN PER E-MAR. IV PATENT, FLUIDS INFUSING. PT STATED HE FELL IN HIS KITCHEN TRYING TO MOVE TOO FAST, THE ONLY THING HE HAD ON HIS FEET WERE SOCKS. PT STATES PAIN IS LOCALIZED TO HIS LEFT HIP. FENTANYL GIVEN WITH NO RELIEF, DR NOTIFIED, ORDERS RECIEVED FOR DILAUDID. DILAUDID GIVEN WITH PARTIAL RELIEF. SCD'S IN PLACE. PT STATES HE STILL HAS 2 MORE DOSES OF HIS MEDICATION FOR C-DIFF AND A FOLLOW UP APT WITH DR. HINOJOSA NEXT THURSDAY. PTS FAMILY VOICED CONCERNS OF PATIENTS EDEMA OF LOWER EXTREMETIES STATING IT HAS WORSENED IN HIS TIME AT HOME AFTER LEAVING RESIDENTIAL FACILITY ONE WEEK AGO. PT VOIDED PER URINAL. WILL CONTINUE WITH PLAN OF CARE.
[2018-01-28] MEDS ORDERED: XANAX 0.25 MG0.25 MG PO (06:41)
[2018-01-28 08:00] VITALS: BP 113/48
[2018-01-28 12:31] VITALS: BP 113/48
--- NOTE | 2018-01-28 12:36 | EKG ---
[place] [address] ELECTROCARDIOGRAM REPORT Name: LILY CORNEJO Room: [address] ADM IN M.R.#: [id number] Admission: 01/27/18 Attend Phys: Ailyn Diez Discharge: Date of : 31 Report #: [id number] THIS REPORT FOR: //name// [facility] ED Test Date: 2018-01-27 Test Time: 18:29:00 Pat Name: LILY CORNEJO Department: Room: [facility] Gender: M Manager Sales Training: Sania MCCARTY : 1935 Requested By: Moses Clements Order Number: [id number] MD: Nolberto Morton Measurements Intervals [place] Rate: 76 P: 76 SD: 163 QRS: -41 QRSD: 99 T: 56 QT: 372 QTc: 419 Interpretive Statements Sinus rhythm Left axis deviation Compared to ECG 12/22/2017 14:57:03 Left-axis deviation now present T-wave abnormality no longer present Electronically Signed On 01-28-2018 12:36:15 CDT by Nolberto Morton [email or web address] <ELECTRONICALLY SIGNED> By: Noblerto Morton MD, FACC 01/28/18 1236 1829 1829 Nolberto Morton MD, [facility] /EPI
[2018-01-28 13:21] VITALS: BP 112/62
--- NOTE | 2018-01-28 14:27 | NUR ---
Pt out of pt room for surgery today. From previous record, pt lives at home alone with family support and they check on pt as needed. Pt has a cane. Pt was at [facility] SNF beginning on 12/30. SW called and spoke with Gia at [facility] who said that pt had discharged home but if needed, they would reevaluate for possible SNF. SW to continue to follow to assist with safe dc planning.
[2018-01-28 16:20] VITALS: BP 113/61
--- NOTE | 2018-01-28 18:10 | NUR ---
PATIENT RESTING IN BED. PATIENT HAD SURGERY THIS AFTERNOON WITHOUT INCIDENT. PATIENT DENIES ANY NEED FOR PAIN MEDICATION AT THIS TIME. PATIENT HAS GOOD APPETITE. PATIENT HAS ABDUCTOR PILLOW IN PLACE. PATIENT DENIES ANY NEEDS AT THIS TIME. CALL LIGHT WITHIN REACH. WILL CONTINUE TO MONITOR.
[2018-01-28 20:00] VITALS: BP 110/68
[2018-01-29] VITALS: BP 107/48
[2018-01-29 04:06] LABS: ABSOLUTE LYMPHOCYTES 0.7 thou/uL (0.8-5.3); ABSOLUTE MONOCYTES 1.1 thou/uL (0.0-1.2); HEMATOCRIT 31.6 % (42.0-52.0); HEMOGLOBIN 10.5 gm/dL (14.0-18.0); MCH 34.2 pg (26.0-34.0); MCHC 33.3 g/dL (28.0-37.0); MCV 102.7 fL (80.0-100.0); MONOCYTES 6.4 %; MPV 9.3 fl. (7.2-11.1); NUCLEATED RBCS 0 /100WBC; PLATELET COUNT* 157 thou/uL (150-400); POLYS 89.6 %; RBC 3.08 mil/uL (4.50-6.00); RDW-CV 14.7 % (10.5-14.5); WBC 16.7 thou/uL (4.0-11.0)
[2018-01-29 04:15] LABS: CALCIUM 8.1 mg/dL (8.5-10.1); CREATININE 0.8 mg/dL (0.6-1.3); POTASSIUM 4.8 mmol/L (3.5-5.1)
[2018-01-29 04:37] VITALS: BP 106/63
--- NOTE | 2018-01-29 05:12 | NUR ---
PT SLEPT ON AND OFF THIS SHIFT. ASSESSMENT DOCUMENTED. MEDS GIVEN PER E-JUN. IV PATENT, FLUIDS INFUSING. PT REPORTED PAIN WAS CONTROLLED THIS SHIFT AND STATED HE WOULD LET NURSING STAFF KNOW IF HE WANTED ANY PAIN MEDICATIONS. HIP PRECAUTIONS IN PLACE. DRESSING ON LEFT HIP C/D/I. WILL CONTINUE WITH PLAN OF CARE.
[2018-01-29 08:30] VITALS: BP 100/64
--- NOTE | 2018-01-29 12:27 | NUR ---
Pt family expressed pt/family preference for [facility] at dc if needed. SW faxed referral for SNF to [facility] [phone] fax [phone] inpreparation for possible dc to SNF. SW to continue to follow to assist with finalizing safe dc plan.
--- NOTE | 2018-01-29 12:46 | CON ---
[facility] [address] [place] [address] CONSULTATION Name: LILY CORNEJO Room: [address] ADM IN M.R.#: [id number] Admission: 01/27/18 Attend Phys: Ailyn Diez Discharge: Date of : 31 Report #: [id number] THIS REPORT FOR: //name// CC: Camron Galo REQUESTING PHYSICIAN: Imer Dickinson M.D. REASON FOR CONSULTATION: Hypoxemia, bronchospasm, need for surgery. DISCUSSION: The patient is a pleasant 82-year-old man who has a history of tobacco abuse and probable COPD. Currently smokes about a half a pack of cigarettes per day. He had had a fairly long hospital stay here recently. He was treated for C. difficile colitis. He was subsequently discharged and went to [facility]. He had not been home long from there, when he fell sustaining a hip fracture. He was seen in the Emergency Department here yesterday evening and has been admitted. He did not have any syncopal episodes that precipitated the fall. Apparently, he turned too quickly in the kitchen. He has a long history of tobacco abuse. He actually smoked a pipe and cigars for years. Subsequently, he did transition over to cigarettes. He was up to a pack of cigarettes per day, but more recent have been down to 1/2 pack. Of course he did not smoke when he was in the hospital here last month and in rehabilitation. He has never been diagnosed with COPD. He has never been on any inhalers or breathing treatments at home. He has never had any PFTs or spirometry done that he is aware of. However, reviewing old records in the computer, he did have full pulmonary function studies done in 2004. At that time was consistent with a mild obstructive process. His FEV1 was 2.39 and the ratio was 63%. He is normally not on home O2. When he came in the hospital yesterday, was requiring O2, it has been around 3-4 liters. He has been having some intermittent cough. Son is at the bedside. They do note that they will intermittently hear him wheezing and have cough even before his most recent issues. PAST MEDICAL HISTORY: Remarkable for prostate carcinoma. It was originally diagnosed quite a few years ago. He has been through radiation therapy for that. Also, he has a history of cholelithiasis, underwent a laparoscopic cholecystectomy several years ago, history of colon polyps, history of glaucoma, macular degeneration, eye surgery. HOME MEDICATIONS: At the time of admission were fluticasone nasal spray, meclizine, baby aspirin, p.r.n. alprazolam, oral vancomycin, which was due to complete, metformin, multivitamins, temazepam at bedtime, Flomax, [place] [address] CONSULTATION Name: LILY CORNEJO Room: [address] IN [facility].#: [id number] Admission: 01/27/18 Attend Phys: Ailyn Diez Discharge: Date of : 31 Report #: [id number] SOCIAL HISTORY: He is a . Lost his about 9 years ago. 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 FAMILY HISTORY: Positive for cancer. REVIEW OF SYSTEMS: A 12-point ROS was done. No positives as above. He has lost weight. Difficult to ascertain how much with the events over the last month. Son however also believes he lost some additional weight prior to his acute illness that got him admitted last month. He denies any difficulty swallowing. Very dry mouth this morning. Appetite has been fairly good. His diarrhea has improved with the treatment for the C. difficile colitis. Denied any syncopal episodes. No palpitations. Does tend to have some issues with lower extremity edema. PHYSICAL EXAMINATION: GENERAL APPEARANCE: That of an elderly man. He does look chronically ill. He is quite thin. His son is at the bedside. HEENT: Head is normocephalic. Sclerae nonicteric. Mucous membranes are dry. His O2 running via nasal cannula. NECK: Negative for adenopathy. No JVD is noted. Neck muscles well developed. HEART: Regular. No S3 is heard. Heart sounds are partially obscured by overlying lung sounds. LUNGS: Breath sounds are markedly diminished. He has a prolonged expiratory phase. Does have a few scattered expiratory wheezes heard. Excursion appears equal. ABDOMEN: Soft, without appreciable hepatosplenomegaly. There is no guarding or rebound tenderness noted. LOWER EXTREMITIES: He does have trace to 1+ edema in the lower extremities. SKIN: Warm and dry. NEUROLOGIC: He is alert and oriented x 3. LABORATORY AND X-RAY FINDINGS: On chest x-ray done yesterday in the Emergency Department was a portable study. Heart size appears normal. No definite infiltrates are seen. May have some minimal atelectatic changes seen in the bases. Venous Dopplers done last month when he was here was negative for DVT. Note was made of extensive edema noted. His chemistry, his sodium is 130 (down from 140 a month ago), BUN of 14, creatinine of 0.7, magnesium yet to check this admission. Transaminases unremarkable. White blood cell count 14,800, hemoglobin 12.4, hematocrit 37, MCV 102, platelets are normal. Echocardiogram done last month showed EF of 45-50%. Diastolic function was thought to be normal. LV size was normal. RV was normal. No significant valvular heart disease was noted. IMPRESSION: Mild hypoxemia. He is also actively bronchospastic. Most likely does have some underlying obstructive lung disease [place] [address] CONSULTATION Name: CLEMENTELILY P Room: [address] IN [facility]#: [id number] Admission: 01/27/18 Attend Phys: Ailyn Diez Discharge: Date of : 31 Report #: [id number] know what his true baseline function is. Unfortunately as long as he is immobile and on bed rest because of hip fracture, the higher risky will be for additional complications. 1. Recent hip fracture. 2. History of tobacco abuse. 3. History of prostate cancer. 4. Mild protein-calorie malnutrition. RECOMMENDATIONS: Discussed with Dr. Dickinson earlier. Also, his son and patient at the bedside, though there is some increased risk of proceeding with surgery today, I believe it probably would be in the patient's best interest. It will help him get him mobilized more quickly. Continue with bronchodilator therapy in the form of steroids and neb treatments. We will also start IS. <ELECTRONICALLY SIGNED> By: Jessika Carlos MD 01/29/18 1246 1203 0306Jessika Carlos, /roney
[2018-01-29 16:00] VITALS: BP 91/42
--- NOTE | 2018-01-29 18:09 | NUR ---
PATIENT RESTING UP IN RECLINER. PATIENT WORKED WITH PHYSICAL AND OCCUPATIONAL THERAPIES TODAY. PATIENT HAS DENIED ANY PAIN. PATIENT HAS EXCELLENT APPETITE. PATIENT DRESSING TO LEFT HIP IS CCLEAN/DRY /INTACT. PATIENT DENIES ANY NEEDS AT THIS TIME. CALL LIGHT WITHIN REACH. WILL CONTINUE TO MONITOR.
[2018-01-29 23:09] VITALS: BP 100/49
[2018-01-30 04:25] LABS: HEMATOCRIT 26.2 % (42.0-52.0); HEMOGLOBIN 8.9 gm/dL (14.0-18.0)
--- NOTE | 2018-01-30 04:43 | NUR ---
ASSESSMENT COMPLETE. PT SLEPT MOST OF THE NIGHT. DENIES NEED FOR PAIN MEDICATION. PT IS HARD OF HEARING, AIDES AT BEDSIDE. PT IS ON 4L PER NC WITH [place] SATS. PT IS IN ISOLATION FOR CDIFF. LEFT FA IV, SALINE LOCKED AND FLUSHES WITHOUT DIFFICULTY. PT IS FALL RISK, BED ALARM ON. PT IS UP ONE ASSIST WITH WALKER AND GAIT BELT. SEE ASSESSMENT AND VITALS FOR OTHER DETAILS. CALL LIGHT WITHIN REACH, WILL CONTINUE PLAN OF CARE.
[2018-01-30 08:10] VITALS: BP 102/57
[2018-01-30 16:08] VITALS: BP 102/58
--- NOTE | 2018-01-30 17:24 | NUR ---
PATIENT RESTING UP IN RECLINER. PATIENT HAD COMPLAINTS OF PAIN THIS AM TREATED ADEQUATLEY WITH OXY IR, PATIENT HAS DENIED ANY FURTHER NEED FOR PAIN MEDICATION. PATIENT WORKED WITH THERAPY THIS AM. PATIENT IS UP WITH ASSIST OF ONE WITH WALKER/GAITBELT. PATIENT HAS EXCELLENT APPETITE. PATIENT DENIES ANY NEEDS AT THIS TIME. CALL LIGHT WITHIN REACH. WILL CONTINUE TO MONITOR.
[2018-01-30 20:00] VITALS: BP 112/58
[2018-01-31 04:00] VITALS: BP 161/66
--- NOTE | 2018-01-31 04:54 | NUR ---
ASSUMED PATIENT CARE AT 1900. PATIENT RESTING IN BED. HIP PRECAUTIONS MAINTAINED THROUGH THE NIGHT. PATIENT ABLE TO USE URINAL AT SIDE OF BED INDEPENDENTLY. O2 2L VIA NC IN PLACE. MINOR COMPLAINTS OF PAIN NOTED. CONTROLLED WITH ORAL MEDICATION. FAMILY HEALTH NURSE PRACTITIONER AND HOURLY ROUNDING COMPLETED CHARTED.
[2018-01-31 07:45] VITALS: BP 106/55
[2018-01-31 16:00] VITALS: BP 98/57
--- NOTE | 2018-01-31 16:21 | NUR ---
ALERT AND ORIENTED X4. UP WITH ASSIST X1 WITH WALKER AND GAIT BELT. IV IS PATENT AND SALINE LOCKED. DENIES NEED FOR PAIN MEDICATION THROUGHOUT SHIFT. TOLERATING DIET. DRESSING TO LEFT HIP IS C/D/I. HIP PRECAUTIONS HAVE BEEN MAINTAINED THROUGHOUT SHIFT. VSS ON ROOM AIR. HOURLY ROUNDS HAVE BEEN MAINTAINED THROUGHOUT SHIFT. CALL LIGHT IS WITHIN REACH. NURSING WILL CONTINUE TO MONITOR.
--- NOTE | 2018-01-31 21:20 | NUR ---
ASSUMED CARE OF PT FROM PAWEL CARDONA. I AGREE WITH HER PREVIOUS ASSESSMENT. PT RESTING WITH EYES CLOSED AT THIS TIME, CALL LITE IN EASY REACH AND BED ALARM ON FOR SAFETY. I WILL CONTINUE TO MONITOR AND PROVIDE CARES NEEDED. REMAINS ON SP CONTACT ISOLATION FOR HX RECENT CDIFF.
[2018-02-01 02:55] VITALS: BP 117/63
--- NOTE | 2018-02-01 07:53 | NUR ---
PT SLEPT ON AND OFF. RECEIVED SCHEDULED XANAX AND PO PAIN MED. ABDUCTOR PILLOW IN PLACE BETWEEN LEGS WHILE IN BED. USING URINAL TO VOID. LFA SL. O2 2L PLACED ON PT WHILE ASLEEP TO KEEP SATS >92%. HS ACCUCHECK 179, INSULIN RECEIVED. NO LABS THIS MORNING. ABLE TO USE CALL LITE AND MAKE NEEDS KNOWN. REMAINS ON SP CONTACT ISOLATION FOR CDIFF. ANTICIPATED DISCHARGE PLANNING. MEPILEX DRSG INTACT TO L HIP.
[2018-02-01 08:15] VITALS: BP 106/62
[2018-02-01 11:33] VITALS: BP 106/62
--- NOTE | 2018-02-01 11:34 | NUR ---
Plan for pt to dc home with son to stay for a couple weeks and services to follow; pt current with [facility]. RUTH faxed referral info and dc orders and med list to [facility]. RUTH called Robyn at [facility] and left a message for admissions to inform of pt being able to dc home and no need for SNF at this time. Pt son to provide pt ride home. No other dc needs expressed at this time.
[2018-02-01] MEDS ORDERED: ASPIRIN325 PO (13:12)
[2018-02-01] MEDS ORDERED: OXYCODONE HCL 55 MG PO (13:14)
[2018-02-01] MEDS ORDERED: HYDROCODON-ACE1 EAC7 PO (13:15)
[2018-02-01 16:00] VITALS: BP 113/50
--- NOTE | 2018-02-01 17:21 | NUR ---
PATIENT HAS BEEN A/O X 4 THIS SHIFT, [place]. PATIENT HAS DENIED THE NEED FOR PAIN MEDS WHEN ASKED. UP IN CHAIR FOR MOST OF SHIFT, SHIFTING WEIGHT PERIODICALLY IN THE CHAIR. ABDUCTOR WEDGE IN PLACE WHIL EIN CHAIR. PATIENT PARTICIPATED WITH PHYSICAL AND OCCUPATIONAL THERAPY. PATIENT'S BLOOD SUGARS MONITORED, CONTINUES ON ORAL METFORMIN. PATIENT ON ROOM AIR. PATIENT UP WITH GB AND WALKER. LEFT HIP DRESSING INTACT. ANA HOSE IN PLACE BILATERALLY. SALINE LOCK PATENT. ORAL VANCO DC'D BY DR HINOJOSA THIS SHIFT. HAS HAD 2 FORMED BMs THIS SHIFT. CM WORKING ON DC PLANNING. REMAINS IN SPECIAL CONTACT FOR HX OF C DIFF. FALL PRECAUTIONS IN PLACE. HOURLY ROUNDING COMPLETED. CALL LIGHT WITHIN REACH. WILL CONTINUE WITH PLAN OF CARE.
[2018-02-02 04:00] VITALS: BP 123/66
--- NOTE | 2018-02-02 05:33 | NUR ---
PT SLEPT FAIRLY WELL OVERNIGHT, RECEIVED SLEEP AIDE AT HS. DRSG REMAINS INTACT TO L HIP. HS ACCUCHECK 156, INSULIN GIVEN ORDERED. VSS. USING URINAL TO VOID OVERNIGHT. NO LABS THIS MORNING. ABDUCTOR PILLOW IN PLACE BETWEEN LEGS WHILE IN BED SLEEPING. ASSISTED TO TURN AND REPOSITION Q2 HOURS AND PRN PT WOULD ALLOW. REMAINS ON SP CONTACT ISOLATION FOR CDIFF. OCC COOK COLD MEAT COUGH HEARD, RT TX GIVEN ORDERED. DISCHARGE PLANNING, PT HOPEFUL TO DC SOON.CALL LITE IN EASY REACH BED ALARM ON F0R SAFETY.
[2018-02-02 08:08] VITALS: BP 131/59
[2018-02-02 14:00] VITALS: BP 146/109
--- NOTE | 2018-02-02 14:57 | NUR ---
RUTH faxed admissions at [facility] the update and dc summary and then spoke with Katelin/admissions at [facility] who said that she will accept pt just pending insurance approval. Katelin called back and said that she received insurance authorization and that she would try to arrange [employer] transportation for 2:00pm. RUTH called and spoke with pt dtr in law Zahra about pt dc to [facility] today and pt dtr in law is in agreement with plan and plans to visit pt at [facility] after she leaves work this evening.
--- NOTE | 2018-02-02 15:30 | NUR ---
REPORT CALLED TO YSABEL AT [facility]. PATIENT DISCHARGED VIA WHEELCHAIR VAN AT 1505 WITH ALL BELONGINGS. CHART SENT WITH TRANSPORT.
--- NOTE | 2018-02-18 09:32 | OP ---
[address] [address] OPERATIVE REPORT Name: LILY CORNEJO Room: [address] IN M.R.#: [id number] Admission: 01/27/18 Attend Phys: Ailyn Diez Discharge: 02/02/18 Date of : 31 Report #: [id number] THIS REPORT FOR: //name// CC: Camron Galo DATE OF SERVICE: 01/28/2018 FAMILY PHYSICIAN: Camron Espitia MD PREOPERATIVE DIAGNOSIS: Closed displaced subcapital left hip fracture. POSTOPERATIVE DIAGNOSIS: Closed displaced subcapital left hip fracture. OPERATION PERFORMED: Hemiarthroplasty, left hip. SURGEON: Gadiel Colon DO ASSISTANTS: 1. Daniel Moe DO 2. Adonis Sweeney DO 3. MS Robi4. GROSS PATHOLOGY: There was evidence of a displaced subcapital left hip fracture. IMPLANTS UTILIZED: Ronnie VerSys fiber metal midcoat size 16 standard, bipolar cup 51 mm with neck length -3.5, femoral head 28 mm. DESCRIPTION OF PROCEDURE: The patient was brought to the operating room where general anesthetic was administered. Preoperative antibiotics were given. The patient was placed on the operating table in lateral position, left hip up. Hibiclens scrub and a ChloraPrep, prep was done to the left hip, leg. The patient was draped in a sterile manner. An incision was made approximately 4-1/2 inches in length on the lateral aspect of the left hip. It was carried down through the skin and subcuticular material by sharp dissection. Tensor fascia catie was split in line with the incision. Gluteus medius and minimus were transected to the musculotendinous junction. An opening H-type capsulotomy was performed. The femoral neck was marked and osteotomy was performed. The head was removed from the acetabulum, measured and it being 51 mm of the best fit. The trial acetabular component was tried in the acetabulum with the 51 being the best fit. Attention was then turned to the femur utilizing the box osteotome. The medial portion of the greater trochanter was removed. The T-reamer was placed down the shaft and the trochanteric broach was utilized. The femur was then reamed and broached up to 16 mm. This was a good fit. Trial components were assembled. The hip was reduced. [place] [address] OPERATIVE REPORT Name: LILY CORNEJO Room: [address] IN [facility].#: [id number] Admission: 01/27/18 Attend Phys: Ailyn Diez Discharge: 02/02/18 Date of : 31 Report #: [id number] hip was stable. The trial components were removed. The final femoral stem was impacted into position with a good fit noted. The bipolar cup was assembled, placed on the femoral stem. The hip was reduced. The components fit well and the hip was stable. The capsule was closed with a #1 Vicryl suture, gluteus medius and minimus reattached with a #1 Vicryl suture, tensor fascia catie with #1 Vicryl suture, subcutaneous with 2-0 Vicryl, and sreekanth on the skin. Estimated blood loss approximately 200 mL. The wound was thoroughly irrigated throughout the procedure. The needle and sponge count reported as correct. The patient was transferred to the recovery room in good condition. <ELECTRONICALLY SIGNED> By: Gadiel Colon DO 02/18/18 0932 1506 1550Micmarcy Colon DO /nt
== END 2018-02-02 15:05 | DRG 469 ==
LOC: M.ERS 18:18 → M.TBA-ER 18:56 → M.3W 18:56
PROVIDERS: Family Medicine; Internal Medicine; Orthopaedic Surgery; ADMIT Internal Medicine
PROC: 0SRS0JZ Replacement of Left Hip Joint, Femoral Surface with Synthetic Substitute, Open Approach (ICD-10-PCS; principal; 2018-01-28)
DX: M80.052A Age-related osteoporosis with current pathological fracture, left femur, initial encounter for fracture (principal); J96.01 Acute respiratory failure with hypoxia; R65.11 Systemic inflammatory response syndrome (SIRS) of non-infectious origin with acute organ dysfunction; E44.1 Mild protein-calorie malnutrition; A04.72 Enterocolitis due to Clostridium difficile, not specified as recurrent; E87.1 Hypo-osmolality and hyponatremia; H35.30 Unspecified macular degeneration; F17.210 Nicotine dependence, cigarettes, uncomplicated; J44.9 Chronic obstructive pulmonary disease, unspecified; H40.9 Unspecified glaucoma; W18.39XA Other fall on same level, initial encounter; R25.1 Tremor, unspecified; F41.9 Anxiety disorder, unspecified; D64.9 Anemia, unspecified; Z90.49 Acquired absence of other specified parts of digestive tract; Z85.46 Personal history of malignant neoplasm of prostate; Z86.010 Personal history of colon polyps; Z79.4 Long term (current) use of insulin; Z79.82 Long term (current) use of aspirin; Z79.899 Other long term (current) drug therapy; Z68.20 Body mass index [BMI] 20.0-20.9, adult; Y93.89 Activity, other specified; Y92.090 Kitchen in other non-institutional residence as the place of occurrence of the external cause; Y99.8 Other external cause status; Z80.8 Family history of malignant neoplasm of other organs or systems

== ENCOUNTER 2018-08-18 18:36 | Emergency (ER) | payer OTHER ==
[~2018-08-18] VITALS: Ht 172.7 cm; Wt 69.6 kg
[~2018-08-18 18:36] MED LIST changes: +ASPIRIN325 PO; +HYDROCODON-ACE1 EAC7 PO; +OXYCODONE HCL 55 MG PO; +XANAX 0.25 MG0.25 MG PO
[2018-08-18 18:59] LABS: ABSOLUTE EOSINOPHILS 0.1 thou/uL (0.0-0.7); ABSOLUTE LYMPHOCYTES 1.6 thou/uL (0.8-5.3); ABSOLUTE MONOCYTES 0.7 thou/uL (0.0-1.2); ABSOLUTE NEUTROPHILS 3.6 thou/uL (1.6-8.1); BASOPHILS 0.6 %; EOSINOPHILS 2.1 %; HEMATOCRIT 40.7 % (42.0-52.0); HEMOGLOBIN 13.8 gm/dL (14.0-18.0); LYMPHOCYTES 26.4 %; MCHC 33.9 g/dL (28.0-37.0); MCV 97.4 fL (80.0-100.0); MONOCYTES 11.7 %; MPV 8.8 fl. (7.2-11.1); NUCLEATED RBCS 0 /100WBC; PLATELET COUNT* 222 thou/uL (150-400); POLYS 59.2 %; RBC 4.18 mil/uL (4.50-6.00); RDW-CV 13.9 % (10.5-14.5); WBC 6.1 thou/uL (4.0-11.0)
[2018-08-18 19:04] LABS: CALCIUM 9.1 mg/dL (8.5-10.1); CREATININE 0.9 mg/dL (0.6-1.3); PROTIME 10.6 Seconds (9.20-11.50)
[2018-08-18 19:24] LABS: ALBUMIN 3.7 g/dL (3.4-5.0); TOTAL BILIRUBIN 0.8 mg/dL (<0.1-1.0); TOTAL PROTEIN 7.2 g/dL (6.4-8.2)
[2018-08-18 20:03] LABS: URINE BILIRUBIN NEGATIVE (Negative); URINE BLOOD TRACE (Negative); URINE CLARITY CLEAR; URINE COLOR YELLOW; URINE GLUCOSE-RANDOM NEGATIVE (Negative); URINE KETONES 1+ (Negative); URINE LEUKOCYTES-REFLEX NEGATIVE (Negative); URINE NITRITE-REFLEX NEGATIVE (Negative); URINE PROTEIN NEGATIVE (Negative); URINE SPECIFIC GRAVITY <= 1.005 (1.005-1.030); URINE UROBILINOGEN 0.2 E.U./dl (0.2-1.0)
[2018-08-18 20:11] VITALS: BP 159/74
--- NOTE | 2018-08-19 14:45 | EKG ---
[place] [address] ELECTROCARDIOGRAM REPORT Name: LILY CORNEJO Room: [facility]#: [id number] Admission: 08/18/18 Attend Phys: Discharge: 08/18/18 Date of : 31 Report #: [id number] THIS REPORT FOR: //name// [facility] ED Test Date: 2018-08-18 Test Time: 18:51:49 Pat Name: LILY CORNEJO Department: Room: Gender: M Certified Addiction Counselor: TIFFANY : 1935 Requested By: Amy Sharma Order Number: [id number] MD: Gadiel Zamora Measurements Intervals [place] Rate: 85 P: 59 [place]: 163 QRS: -53 QRSD: 98 T: 53 QT: 367 QTc: 437 Interpretive Statements Sinus rhythm Left anterior fascicular block Compared to ECG 01/27/2018 18:29:00 no significant changes noted Electronically Signed On 08-19-2018 14:45:06 CDT by Gadiel Zamora [email or web address] <ELECTRONICALLY SIGNED> By: Gadiel Zamora MD, [facility] 08/19/18 1445 50 50 Gadiel Zamora MD, FACC /EPI
== END 2018-08-18 20:12 | disposition home or self-care (01) ==
LOC: M.ERS 18:36
PROVIDERS: Nurse Practitioner Family
DX: R03.0 Elevated blood-pressure reading, without diagnosis of hypertension (principal); R51 Headache; J44.9 Chronic obstructive pulmonary disease, unspecified; F17.210 Nicotine dependence, cigarettes, uncomplicated; Z85.46 Personal history of malignant neoplasm of prostate; Z98.890 Other specified postprocedural states; Z90.49 Acquired absence of other specified parts of digestive tract

== ENCOUNTER → 2019-10-11 | Outpatient (CLI) | payer OTHER | LOC: M.WC 09:00 | PROVIDERS: ATTEND Emergency Medicine Undersea and Hyperbaric Medicine | DX: E11.622 Type 2 diabetes mellitus with other skin ulcer (principal); L97.211 Non-pressure chronic ulcer of right calf limited to breakdown of skin; I89.0 Lymphedema, not elsewhere classified; E11.36 Type 2 diabetes mellitus with diabetic cataract; E11.39 Type 2 diabetes mellitus with other diabetic ophthalmic complication; H40.9 Unspecified glaucoma; J44.9 Chronic obstructive pulmonary disease, unspecified; F41.9 Anxiety disorder, unspecified; Z87.891 Personal history of nicotine dependence; Z85.46 Personal history of malignant neoplasm of prostate; Z90.49 Acquired absence of other specified parts of digestive tract; Z96.642 Presence of left artificial hip joint ==

== ENCOUNTER → 2019-10-18 | Outpatient (CLI) | payer OTHER | LOC: M.WC 04:47 | PROVIDERS: ATTEND Emergency Medicine Undersea and Hyperbaric Medicine | DX: E11.622 Type 2 diabetes mellitus with other skin ulcer (principal); L97.211 Non-pressure chronic ulcer of right calf limited to breakdown of skin; I89.0 Lymphedema, not elsewhere classified; E11.36 Type 2 diabetes mellitus with diabetic cataract; E11.39 Type 2 diabetes mellitus with other diabetic ophthalmic complication; H40.9 Unspecified glaucoma; J44.9 Chronic obstructive pulmonary disease, unspecified; F41.9 Anxiety disorder, unspecified; Z85.46 Personal history of malignant neoplasm of prostate; Z87.891 Personal history of nicotine dependence ==

== ENCOUNTER → 2020-06-07 | Outpatient (CLI) | payer OTHER ==
[2020-06-07 11:09] LABS: ABSOLUTE EOSINOPHILS 0.1 thou/uL (0.0-0.7); ABSOLUTE LYMPHOCYTES 1.2 thou/uL (0.8-5.3); ABSOLUTE MONOCYTES 1.6 thou/uL (0.0-1.2); ABSOLUTE NEUTROPHILS 5.9 thou/uL (1.6-8.1); BASOPHILS 0.3 %; EOSINOPHILS 1.6 %; HEMATOCRIT 37.6 % (42.0-52.0); HEMOGLOBIN 12.4 gm/dL (14.0-18.0); LYMPHOCYTES 13.6 %; MCH 32.3 pg (26.0-34.0); MCHC 33.1 g/dL (28.0-37.0); MCV 97.5 fL (80.0-100.0); MONOCYTES 17.8 %; MPV 7.7 fl. (7.2-11.1); NUCLEATED RBCS 0 /100WBC; PLATELET COUNT* 295 thou/uL (150-400); POLYS 66.7 %; RBC 3.85 mil/uL (4.50-6.00); RDW-CV 12.9 % (10.5-14.5); WBC 8.9 thou/uL (4.0-11.0)
[2020-06-07 11:26] LABS: ALBUMIN 2.9 g/dL (3.4-5.0); ALKALINE PHOSPHATASE 63 U/L (46-116); ANION GAP 6 mmol/L (7-16); BUN 24 mg/dL (7-18); CALCIUM 8.6 mg/dL (8.5-10.1); CHLORIDE 96 mmol/L (98-107); CO2 31 mmol/L (21-32); DIRECT BILIRUBIN 0.2 mg/dL (<0.1-0.3); GLUCOSE 123 mg/dL (70-99); NT-PRO BRAIN NAT PEPTIDE 12246 pg/mL (<300); POTASSIUM 4.3 mmol/L (3.5-5.1); SGOT 21 U/L (15-37); SGPT 30 U/L (30-65); SODIUM 133 mmol/L (136-145); TOTAL BILIRUBIN 0.9 mg/dL (<0.1-1.0); TOTAL PROTEIN 6.6 g/dL (6.4-8.2)
[2020-06-07 11:30] LABS: SERUM ASSESSMENT Clear
[2020-06-07 15:59] LABS: CHOLESTEROL 169 mg/dL (<200); HDL CHOLESTEROL 80 mg/dL (>40); LDL CHOLESTEROL 79 mg/dL (<100); TC:HDL 2.1 Ratio (Not establshd); TRIGLYCERIDE 51 mg/dL (<150); VLDL 10 mg/dL (<40)
[2020-06-08 05:18] LABS: GLYCOHEMOGLOBIN (HGB A1C) 7.3
== END ==
LOC: M.LAB 10:31
PROVIDERS: ATTEND Registered Nurse Diabetes Educator
DX: J43.1 Panlobular emphysema (principal); E11.9 Type 2 diabetes mellitus without complications; E55.9 Vitamin D deficiency, unspecified; R60.0 Localized edema; Z79.899 Other long term (current) drug therapy

== ENCOUNTER 2020-06-26 16:18 | Inpatient (IN) | payer OTHER ==
[~2020-06-26] VITALS: Ht 172.7 cm; Wt 67.4 kg
[2020-06-26 16:38] VITALS: BP 121/86
[2020-06-26 16:45] LABS: ABSOLUTE LYMPHOCYTES 1.2 thou/uL (0.8-5.3); HEMOGLOBIN 12.9 gm/dL (14.0-18.0); RDW-CV 14.1 % (10.5-14.5)
[2020-06-26 16:47] LABS: ABSOLUTE EOSINOPHILS 0.1 thou/uL (0.0-0.7); ABSOLUTE MONOCYTES 0.9 thou/uL (0.0-1.2); ABSOLUTE NEUTROPHILS 4.3 thou/uL (1.6-8.1); BASOPHILS 0.7 %; EOSINOPHILS 1.2 %; LYMPHOCYTES 17.7 %; MCH 32.6 pg (26.0-34.0); MCV 98.8 fL (80.0-100.0); MONOCYTES 14.4 %; NUCLEATED RBCS 0 /100WBC; PLATELET COUNT* 276 thou/uL (150-400); RBC 3.95 mil/uL (4.50-6.00); WBC 6.5 thou/uL (4.0-11.0)
[2020-06-26 16:53] LABS: CALCIUM 9.3 mg/dL (8.5-10.1); CREATININE 1.2 mg/dL (0.6-1.3); POTASSIUM 4.4 mmol/L (3.5-5.1)
[2020-06-26 17:04] LABS: ALBUMIN 3.1 g/dL (3.4-5.0); TOTAL BILIRUBIN 0.9 mg/dL (<0.1-1.0); TOTAL PROTEIN 7.4 g/dL (6.4-8.2)
[2020-06-26 18:43] LABS: APTT 27.3 Seconds (25.0-31.3); INR 1.1; PROTIME 11.8 Seconds (9.20-11.50)
[2020-06-26 19:42] VITALS: BP 124/64
[2020-06-26 20:00] VITALS: BP 129/72
[2020-06-27] VITALS (8 sets, daily range): BP systolic 82–147; BP diastolic 34–96
[2020-06-27 04:22] LABS: HEMATOCRIT 33.8 % (42.0-52.0); HEMOGLOBIN 11.1 gm/dL (14.0-18.0); MCH 32.3 pg (26.0-34.0); MCHC 32.8 g/dL (28.0-37.0); MCV 98.3 fL (80.0-100.0); MPV 9.2 fl. (7.2-11.1); RBC 3.44 mil/uL (4.50-6.00); RDW-CV 13.8 % (10.5-14.5)
[2020-06-27 04:38] LABS: ALBUMIN 2.5 g/dL (3.4-5.0); CALCIUM 8.4 mg/dL (8.5-10.1); CREATININE 1.4 mg/dL (0.6-1.3); MAGNESIUM 2.2 mg/dL (1.8-2.4); TOTAL BILIRUBIN 0.5 mg/dL (<0.1-1.0); TOTAL PROTEIN 6.2 g/dL (6.4-8.2)
[2020-06-27 04:47] LABS: POTASSIUM 5.3 mmol/L (3.5-5.1)
--- NOTE | 2020-06-27 10:12 | EKG ---
[place] [address] ELECTROCARDIOGRAM REPORT Name: LILY CORNEJO Room: [address] ADM IN .R.#: [id number] Admission: 06/26/20 Attend Phys: Tona Gilman, Discharge: Date of : 31 Date of Service: 06/26/20 1906 Report #: [id number] THIS REPORT FOR: //name// [facility] ED Test Date: 2020-06-26 Test Time: 19:06:20 Pat Name: LILY CORNEJO Department: Room: [facility] Gender: M Career Services Officer: JARRED : 1935 Requested By: Moses lCements Order Number: [id number] MD: Adalberto Barrera Measurements Intervals [place] Rate: 137 P: 115 [place]: 119 QRS: -92 QRSD: 164 T: 247 QT: 393 QTc: 594 Interpretive Statements Atrial flutter with 2:1 block incomplete RBBB and LAFB Compared to ECG 08/18/2018 18:51:49 incom;lete Right bundle-branch block now present Sinus rhythm no longer present Electronically Signed On 06-27-2020 10:11:59 CDT by Adalberto Barrera [email or web address] <ELECTRONICALLY SIGNED> By: Adalberto Barrera MD, [facility] 06/27/20 1011 190 190 Adalberto Barrera MD, [facility] /EPI
--- NOTE | 2020-06-27 10:14 | EKG ---
[place] [address] ELECTROCARDIOGRAM REPORT Name: CLEMENTEVERNLILY P Room: [address] ADM IN .R.#: [id number] Admission: 06/26/20 Attend Phys: Tona Gilman, Discharge: Date of : 31 Date of Service: 06/27/20 0501 Report #: [id number] THIS REPORT FOR: //name// [facility] Test Date: 2020-06-27 Test Time: 05:01:07 Pat Name: LILY CORNEJO Department: Room: [address] Gender: M Director Of Loss Prevention: ANGELICA : 1935 Requested By: Tona Gilman Order Number: [id number] Reading MD: Adalberto Barrera Measurements Intervals [place] Rate: 135 P: 83 [place]: 133 QRS: -57 QRSD: 135 T: 257 QT: 359 QTc: 539 Interpretive Statements atrial flutter with 2:1 block Right bundle branch block Nonspecific T abnormalities, lateral leads Compared to ECG 06/26/2020 19:06:20 T-wave abnormality now present Left anterior fascicular block no longer present Electronically Signed On 06-27-2020 10:14:41 CDT by Adalberto Barrera [email or web address] <ELECTRONICALLY SIGNED> By: Adalberto Barrera MD, [facility] 06/27/20 1014 0501 0501 Adalberto Barrera MD, [facility] /EPI
--- NOTE | 2020-06-27 10:17 | EKG ---
[place] [address] ELECTROCARDIOGRAM REPORT Name: LILY CORNEJO Daryl Room: [address] ADM IN .R.#: [id number] Admission: 06/26/20 Attend Phys: Tona Gilman, Discharge: Date of : 31 Date of Service: 06/27/20812 Report #: [id number] THIS REPORT FOR: //name// [facility] Test Date: 2020-06-27 Test Time: 08:13:37 Pat Name: LILY CORNEJO Department: Room: [address] Gender: M Resident Services Coordinator: : 1935 Requested By: Tona Gilman Order Number: [id number] MD: Adalberto Barrera Measurements Intervals [place] Rate: 108 P: [place]: QRS: 76 QRSD: 103 T: 104 QT: 419 QTc: 562 Interpretive Statements Atrial flutter with variable block Borderline low voltage, extremity leads Nonspecific T abnormalities, lateral leads Prolonged QT interval Compared to ECG 06/27/2020 05:01: Prolonged QT interval now present Right bundle-branch block no longer present T-wave abnormality still present Electronically Signed On 06-27-2020 10:17:06 CDT by Adalberto Barrera [email or web address] <ELECTRONICALLY SIGNED> By: Adalberto Barrera MD, [facility] 06/27/20 1017 2 2 Adalberto Barrera MD, [facility] /EPI
[2020-06-27] MEDS ORDERED: FUROSEMIDE 20 M20 M1 PO (11:49)
[2020-06-27] MEDS ORDERED: MECLIZINE HCL12.5 MG PO (11:52)
[2020-06-27] MEDS ORDERED: MILK OF MA400 MG/5 M PO (11:55)
[2020-06-27] MEDS ORDERED: KLOR-CON 10 ER10 MEQ PO (11:56)
--- NOTE | 2020-06-27 14:51 | 2DMMODE ---
[place] [address] 2 D/M-MODE ECHOCARDIOGRAM Name: LILY CORNEJO Room: [address] [place].#: [id number] Admission: 06/26/20 Attend Phys: Tona Gilman, Discharge: Date of : 31 Date of Service: 06/27/20 1451 Report #: [id number] THIS REPORT FOR: cc: Kathy Ewing Tammy RNP Holkins, John M. MD [facility] ~ APPROVED REPORT Study performed: 06/27/2020 14:11:52 EXAM: Comprehensive 2D, Doppler, and color-flow Echocardiogram Patient Location: In-Patient Room #: [facility] Status: routine BSA: 1.84 HR: 100 bpm BP: 147/96 mmHg Rhythm: Atrial Fibrillation Other Information Study Quality: Good Indications Atrial Fibrillation 2D Dimensions IVSd: 8.39 (7-11mm) LVOT Diam: 20.69 (18-24mm) LVDd: 43.27 mm PWd: 8.50 (7-11mm) Ascending Ao: 24.72 (22-36mm) LVDs: 33.25 (25-40mm) Aortic Root: 37.29 mm Volumes Left Atrial Volume (Systole) LA ESV Index: 31.30 mL/m2 Aortic Valve AoV Peak Rodney.: 0.89 m/s AO Peak Gr.: 3.18 mmHg LVOT Max P.12 mmHg AO Mean Gr.: 1.90 mmHg LVOT Mean P.00 mmHg LVOT Max V: 0.73 m/s AO V2 VTI: 15.12 cm LVOT Mean V: 0.46 m/s AILYN (VTI): 2.82 cm2 LVOT V1 VTI: 12.68 [place] [address] 2 D/M-MODE ECHOCARDIOGRAM Name: LILY CORNEJO Room: [address] [place] ..#: [id number] Admission: 06/26/20 Attend Phys: Tona Gilman, Discharge: Date of : 31 Date of Service: 06/27/20 1451 Report #: [id number] Pulmonary Valve PV Peak Rodney.: 0.60 m/s PV Peak Gr.: 1.43 mmHg Tricuspid Valve RAP Estimate: 5.00 mmHg TR Peak Gr.: 21.19 mmHg RVSP: 26.00 mmHg PA Pressure: 26.00 mmHg Left Ventricle The left ventricle is normal size. There is normal LV segmental wall motion. There is normal left ventricular wall thickness. Left ventricular systolic function is normal. The left ventricular ejection fraction is within the normal range. LVEF is 50-55%. This study is not technically sufficient to allow evaluation of the LV diastolic function due to atrial fibrillation. Right Ventricle Right ventricle is moderately dilated. The right ventricular systolic function is normal. Atria The left atrium size is normal. Right atrium is moderately dilated. Aortic Valve Mild aortic valve sclerosis. No aortic regurgitation is present. There is no aortic valvular stenosis. Mitral Valve Mild mitral annular calcification. Mild mitral regurgitation. No evidence of mitral valve stenosis. Tricuspid Valve The tricuspid valve is normal in structure. Mild tricuspid regurgitation. Mild pulmonary hypertension. Pulmonic Valve The pulmonary valve is normal in structure. Mild pulmonic regurgitation. Great Vessels The aortic root is normal in size. IVC is dilated and collapses <50% with inspiration. Pericardium There [place] [address] 2 D/M-MODE ECHOCARDIOGRAM Name: CLEMENTELILY P Room: [address] IN [facility].#: [id number] Admission: 06/26/20 Attend Phys: Tona Gilman, Discharge: Date of : 31 Date of Service: 06/27/20 1451 Report #: [id number] <Conclusion> The left ventricle is normal size. There is normal left ventricular wall thickness. Left ventricular systolic function is normal. The left ventricular ejection fraction is within the normal range. LVEF is 50-55%. This study is not technically sufficient to allow evaluation of the LV diastolic function due to atrial fibrillation. Right ventricle is moderately dilated. The left atrium size is normal. Right atrium is moderately dilated. Mild aortic valve sclerosis. No aortic regurgitation is present. There is no aortic valvular stenosis. Mild mitral annular calcification. Mild mitral regurgitation. No evidence of mitral valve stenosis. The tricuspid valve is normal in structure. Mild tricuspid regurgitation. Mild pulmonary hypertension. IVC is dilated and collapses <50% with inspiration. There is no pericardial effusion. There is normal LV segmental wall motion. <ELECTRONICALLY SIGNED> By: Adalberto Barrera MD, FACC 06/27/20 [id number] Adalberto Barrera MD, FACC /INF
[2020-06-28 00:30] VITALS: BP 90/45
[2020-06-28 02:06] LABS: GLYCOHEMOGLOBIN (HGB A1C) 7.6 % (4.8-5.6)
[2020-06-28 04:23] LABS: HEMATOCRIT 30.3 % (42.0-52.0); HEMOGLOBIN 10.2 gm/dL (14.0-18.0); MCH 33.1 pg (26.0-34.0); MCHC 33.6 g/dL (28.0-37.0); MCV 98.4 fL (80.0-100.0); MPV 8.6 fl. (7.2-11.1); RBC 3.08 mil/uL (4.50-6.00); WBC 6.2 thou/uL (4.0-11.0)
[2020-06-28 04:46] VITALS: BP 96/45
[2020-06-28 04:50] LABS: CALCIUM 8.2 mg/dL (8.5-10.1); CREATININE 1.4 mg/dL (0.6-1.3)
[2020-06-28 08:52] VITALS: BP 107/56
[2020-06-28 12:20] VITALS: BP 99/52
[2020-06-28 16:11] VITALS: BP 107/58
[2020-06-28 20:00] VITALS: BP 124/64
[2020-06-29] VITALS (7 sets, daily range): BP systolic 107–120; BP diastolic 56–75
[2020-06-29 04:46] LABS: HEMATOCRIT 34.6 % (42.0-52.0); HEMOGLOBIN 11.4 gm/dL (14.0-18.0); MCH 32.6 pg (26.0-34.0); MCHC 33.1 g/dL (28.0-37.0); MCV 98.7 fL (80.0-100.0); MPV 8.7 fl. (7.2-11.1); RBC 3.5 mil/uL (4.50-6.00); WBC 5.3 thou/uL (4.0-11.0)
[2020-06-29 04:54] LABS: CALCIUM 8.8 mg/dL (8.5-10.1); CREATININE 1.1 mg/dL (0.6-1.3); POTASSIUM 3.7 mmol/L (3.5-5.1)
[2020-06-30 03:48] VITALS: BP 119/70
[2020-06-30 04:47] LABS: HEMATOCRIT 36.8 % (42.0-52.0); HEMOGLOBIN 12.1 gm/dL (14.0-18.0); MCH 32.1 pg (26.0-34.0); MCHC 32.8 g/dL (28.0-37.0); MCV 97.9 fL (80.0-100.0); MPV 8.9 fl. (7.2-11.1); RBC 3.76 mil/uL (4.50-6.00); RDW-CV 13.6 % (10.5-14.5); WBC 5.8 thou/uL (4.0-11.0)
[2020-06-30 04:52] LABS: CALCIUM 8.7 mg/dL (8.5-10.1); CREATININE 1.1 mg/dL (0.6-1.3); POTASSIUM 4.1 mmol/L (3.5-5.1)
[2020-06-30 08:20] VITALS: BP 117/66
[2020-06-30] MEDS ORDERED: LANOXIN125 MCG PO (10:13)
[2020-06-30] MEDS ORDERED: ELIQUIS5 MG PO (10:13)
[2020-06-30 11:40] VITALS: BP 100/56
[2020-06-30 15:40] LABS: URINE BILIRUBIN NEGATIVE (Negative); URINE BLOOD TRACE (Negative); URINE CLARITY CLEAR; URINE COLOR YELLOW; URINE GLUCOSE-RANDOM NEGATIVE (Negative); URINE KETONES NEGATIVE (Negative); URINE LEUKOCYTES-REFLEX NEGATIVE (Negative); URINE NITRITE-REFLEX NEGATIVE (Negative); URINE PROTEIN NEGATIVE (Negative); URINE SPECIFIC GRAVITY 1.015 (1.005-1.030); URINE UROBILINOGEN 0.2 E.U./dl (0.2-1.0)
[2020-06-30 20:00] VITALS: BP 110/58
[2020-07-01] VITALS: BP 101/54
[2020-07-01 04:58] VITALS: BP 105/62
[2020-07-01 07:27] VITALS: BP 110/52
[2020-07-01 07:44] LABS: HEMATOCRIT 36.3 % (42.0-52.0); MCH 31.9 pg (26.0-34.0); MPV 8.7 fl. (7.2-11.1); RBC 3.75 mil/uL (4.50-6.00); RDW-CV 13.7 % (10.5-14.5); WBC 6.4 thou/uL (4.0-11.0)
[2020-07-01 07:58] LABS: CALCIUM 8.5 mg/dL (8.5-10.1); POTASSIUM 4.2 mmol/L (3.5-5.1)
[2020-07-01 12:00] VITALS: BP 111/60
[2020-07-01 16:00] VITALS: BP 108/64
[2020-07-01 20:00] VITALS: BP 100/54
[2020-07-02 00:37] VITALS: BP 108/56
[2020-07-02 04:17] VITALS: BP 129/64
[2020-07-02 05:32] LABS: CALCIUM 8.7 mg/dL (8.5-10.1); POTASSIUM 3.9 mmol/L (3.5-5.1)
[2020-07-02 05:41] LABS: HEMATOCRIT 37.4 % (42.0-52.0); HEMOGLOBIN 12.4 gm/dL (14.0-18.0); MCH 32.5 pg (26.0-34.0); MCHC 33.1 g/dL (28.0-37.0); MCV 98.4 fL (80.0-100.0); MPV 8.8 fl. (7.2-11.1); RBC 3.8 mil/uL (4.50-6.00); RDW-CV 13.9 % (10.5-14.5); WBC 5.2 thou/uL (4.0-11.0)
[2020-07-02 08:00] VITALS: BP 109/56
[2020-07-02 12:19] VITALS: BP 99/54
[2020-07-02 16:32] VITALS: BP 92/51
[2020-07-02 20:00] VITALS: BP 102/59
[2020-07-03 00:16] VITALS: BP 107/62
[2020-07-03 04:06] VITALS: BP 114/65
[2020-07-03 09:00] VITALS: BP 98/52
[2020-07-03 12:00] VITALS: BP 99/57
[2020-07-03 16:00] VITALS: BP 99/58
[2020-07-03 20:00] VITALS: BP 93/51
[2020-07-04] VITALS (8 sets, daily range): BP systolic 96–117; BP diastolic 46–95
[2020-07-04] MEDS ORDERED: KEFLEX500 M1 PO (12:41)
[2020-07-05 04:33] VITALS: BP 117/57
[2020-07-05 08:00] VITALS: BP 112/56
[2020-07-05 13:31] VITALS: BP 108/65
== END 2020-07-05 15:00 | DRG 602 ==
LOC: M.ERS 16:18 → M.2W 17:19 → M.TBA-ER 17:19 → M.2W 19:50
PROVIDERS: Family Medicine; ADMIT Internal Medicine; ATTEND Internal Medicine
DX: L03.116 Cellulitis of left lower limb (principal); N17.0 Acute kidney failure with tubular necrosis; I50.33 Acute on chronic diastolic (congestive) heart failure; R65.11 Systemic inflammatory response syndrome (SIRS) of non-infectious origin with acute organ dysfunction; I48.92 Unspecified atrial flutter; L03.115 Cellulitis of right lower limb; Z20.822 Contact with and (suspected) exposure to COVID-19; J44.9 Chronic obstructive pulmonary disease, unspecified; E11.9 Type 2 diabetes mellitus without complications; I87.2 Venous insufficiency (chronic) (peripheral); N40.0 Benign prostatic hyperplasia without lower urinary tract symptoms; E87.5 Hyperkalemia; F41.9 Anxiety disorder, unspecified; E88.09 Other disorders of plasma-protein metabolism, not elsewhere classified; Z79.82 Long term (current) use of aspirin; Z85.46 Personal history of malignant neoplasm of prostate; Z90.49 Acquired absence of other specified parts of digestive tract; Z79.899 Other long term (current) drug therapy

== ENCOUNTER → 2020-07-12 | Outpatient (CLI) | payer OTHER ==
[~2020-07-12] MED LIST changes: +ELIQUIS5 MG PO; +FUROSEMIDE 20 M20 M1 PO; +KEFLEX500 M1 PO; +KLOR-CON 10 ER10 MEQ PO; +LANOXIN125 MCG PO; +MECLIZINE HCL12.5 MG PO; +MILK OF MA400 MG/5 M PO
== END ==
LOC: M.WC 07-05 09:00
PROVIDERS: ATTEND Family Medicine
DX: E11.622 Type 2 diabetes mellitus with other skin ulcer (principal); I87.331 Chronic venous hypertension (idiopathic) with ulcer and inflammation of right lower extremity; L97.212 Non-pressure chronic ulcer of right calf with fat layer exposed; I87.302 Chronic venous hypertension (idiopathic) without complications of left lower extremity; J44.9 Chronic obstructive pulmonary disease, unspecified; E11.36 Type 2 diabetes mellitus with diabetic cataract; E11.39 Type 2 diabetes mellitus with other diabetic ophthalmic complication; H42 Glaucoma in diseases classified elsewhere; I89.0 Lymphedema, not elsewhere classified; F41.9 Anxiety disorder, unspecified; F32.9 Major depressive disorder, single episode, unspecified; Z87.891 Personal history of nicotine dependence; Z85.46 Personal history of malignant neoplasm of prostate; Z90.49 Acquired absence of other specified parts of digestive tract; Z96.642 Presence of left artificial hip joint; Z79.84 Long term (current) use of oral hypoglycemic drugs

== ENCOUNTER → 2020-07-19 | Outpatient (CLI) | payer OTHER | LOC: M.WC 08:52 | PROVIDERS: ATTEND Family Medicine | DX: E11.622 Type 2 diabetes mellitus with other skin ulcer (principal); I87.331 Chronic venous hypertension (idiopathic) with ulcer and inflammation of right lower extremity; L97.212 Non-pressure chronic ulcer of right calf with fat layer exposed; I87.302 Chronic venous hypertension (idiopathic) without complications of left lower extremity; J44.9 Chronic obstructive pulmonary disease, unspecified; E11.36 Type 2 diabetes mellitus with diabetic cataract; E11.39 Type 2 diabetes mellitus with other diabetic ophthalmic complication; H42 Glaucoma in diseases classified elsewhere; I89.0 Lymphedema, not elsewhere classified; F41.9 Anxiety disorder, unspecified; F32.9 Major depressive disorder, single episode, unspecified; Z87.891 Personal history of nicotine dependence; Z85.46 Personal history of malignant neoplasm of prostate; Z90.49 Acquired absence of other specified parts of digestive tract; Z96.642 Presence of left artificial hip joint; Z79.84 Long term (current) use of oral hypoglycemic drugs ==

== ENCOUNTER → 2020-07-26 | Outpatient (CLI) | payer OTHER | LOC: M.WC 08:32 | PROVIDERS: ATTEND Family Medicine | DX: E11.622 Type 2 diabetes mellitus with other skin ulcer (principal); I87.331 Chronic venous hypertension (idiopathic) with ulcer and inflammation of right lower extremity; L97.212 Non-pressure chronic ulcer of right calf with fat layer exposed; I87.302 Chronic venous hypertension (idiopathic) without complications of left lower extremity; E11.36 Type 2 diabetes mellitus with diabetic cataract; J44.9 Chronic obstructive pulmonary disease, unspecified; E11.39 Type 2 diabetes mellitus with other diabetic ophthalmic complication; H42 Glaucoma in diseases classified elsewhere; I89.0 Lymphedema, not elsewhere classified; F41.9 Anxiety disorder, unspecified; F32.9 Major depressive disorder, single episode, unspecified; Z87.891 Personal history of nicotine dependence; Z85.46 Personal history of malignant neoplasm of prostate; Z90.49 Acquired absence of other specified parts of digestive tract; Z96.642 Presence of left artificial hip joint; Z79.84 Long term (current) use of oral hypoglycemic drugs ==

== ENCOUNTER → 2020-08-09 | Outpatient (CLI) | payer OTHER | LOC: M.WC 08:12 | PROVIDERS: ATTEND Family Medicine | DX: E11.622 Type 2 diabetes mellitus with other skin ulcer (principal); I87.331 Chronic venous hypertension (idiopathic) with ulcer and inflammation of right lower extremity; L97.212 Non-pressure chronic ulcer of right calf with fat layer exposed; I87.302 Chronic venous hypertension (idiopathic) without complications of left lower extremity; E11.36 Type 2 diabetes mellitus with diabetic cataract; J44.9 Chronic obstructive pulmonary disease, unspecified; E11.39 Type 2 diabetes mellitus with other diabetic ophthalmic complication; H42 Glaucoma in diseases classified elsewhere; I89.0 Lymphedema, not elsewhere classified; F41.9 Anxiety disorder, unspecified; F32.9 Major depressive disorder, single episode, unspecified; Z87.891 Personal history of nicotine dependence; Z85.46 Personal history of malignant neoplasm of prostate; Z90.49 Acquired absence of other specified parts of digestive tract; Z96.642 Presence of left artificial hip joint; Z79.84 Long term (current) use of oral hypoglycemic drugs ==

== ENCOUNTER → 2020-08-16 | Outpatient (CLI) | payer OTHER | LOC: M.WC 09:00 | PROVIDERS: ATTEND Family Medicine | DX: E11.622 Type 2 diabetes mellitus with other skin ulcer (principal); I87.331 Chronic venous hypertension (idiopathic) with ulcer and inflammation of right lower extremity; L97.811 Non-pressure chronic ulcer of other part of right lower leg limited to breakdown of skin; I87.302 Chronic venous hypertension (idiopathic) without complications of left lower extremity; I89.0 Lymphedema, not elsewhere classified; J44.9 Chronic obstructive pulmonary disease, unspecified; E11.36 Type 2 diabetes mellitus with diabetic cataract; E11.39 Type 2 diabetes mellitus with other diabetic ophthalmic complication; H42 Glaucoma in diseases classified elsewhere; E11.610 Type 2 diabetes mellitus with diabetic neuropathic arthropathy; F41.9 Anxiety disorder, unspecified; F32.9 Major depressive disorder, single episode, unspecified; Z85.46 Personal history of malignant neoplasm of prostate; Z87.891 Personal history of nicotine dependence; Z79.01 Long term (current) use of anticoagulants; Z79.84 Long term (current) use of oral hypoglycemic drugs; Z79.899 Other long term (current) drug therapy ==